=== PATIENT | female | born 1980 | race Caucasian/White ===

== ENCOUNTER 2024-05-31 19:48 | Inpatient (IN) | payer MEDICARE, SELFPAY ==
[2024-05-31 20:40] VITALS: BMI 36.0
--- NOTE | 2024-06-01 02:07 | PC.ADMIT ---
Caryl was admitted from [facility] on a 12b for schizoaffective D/O bipolar type. patient is noted to be disorganized, paranoid, suspicious and delusional upon admission. she allowed the skin check and vital signs with much encouragement. During the changeover she made multiple comments about how TW wanted to see her skin because TW wanted to clone or possess her No one possess me I am my own person . she made multiple references to wanting to be a ghost when asked to elaborate she stated I want to be a ghost. some ghosts are invisible and some are like a white mist I want to be an invisible ghost. patient did not openly endorse suicidal ideation. she denies all psych symptoms. she is noted to have multiple areas of discoloration on her lower extremities and multiple small scabs. the patient would not allow photographic documentation of her skin. she declined to answer any admission assessment questions and the admission was completed via crisis eval. patient oriented to the unit she was initially placed on Q15 minute safety checks which were changed to Q5 minute safety checks as the patient is sleeping in the anteroom r/t disorganization abd disruption of her roommates
[2024-06-01 07:00] VITALS: BMI 35.4
--- NOTE | 2024-06-01 08:50 | P.CONHOSP_ITS ---
History of Present Illness Data of Consult Service Date: 06/01/24 Primary Care Provider: Unknown Physician HPI Reason for consult: Admission H&P Pt is a 44-year-old female with a PMH significant for?schizoaffective with bipolar type who is admitted to psychiatry unit for delusions and disorganized thinking. Pt is currently homeless and has been living an attempt in a [facility] and has a long hx of noncompliance with home medications. Originally presented to [facility] with primarily psychiatric complaints. Medical consult for admission H&P. ?Pt seen in the ante-room where pt is completely covered head-to-toe in blankets which she declines to remove throughout interview. Pt initially reports that she wants help to ?turn into either air or a ghost?. Pt denies any acute medical co mplaints, though notes she has ?scabies and ?parasites? because they are retracted to her since she does not ?think they should exist?. Pt declines physical exam including examination of hands. Pt declines answering further questions or physical exam as she then only wants to discuss ?being allergic to antipsychotics?. Review of records from [facility] including CBC, CMP, and vitals are all unremarkable. Review of Systems Review of Systems: Pt denies any acute medical complaints. [facility] Social History Household Members: Other Household Members Other:: homeless Housing: Homeless Do you presently have visiting nurse or other home services: No Patient Tobacco Use Status: Current everyday Tobacco user Tobacco use type: Cigarette Cigarette Packs Per Day: 0.25 Cigarettes Per Day: 5.0 Smoked in Last 30 Days: Yes Patient Interested in Nicotine Replacement: Yes Patient Given Instructions on How to Stop Smoking: No (patient declined to participate) Second Hand Smoke Exposure: No Use of substances other than those prescribed or required for medical reasons: Refusing to respond Currently Displaying Signs/Symptoms of Drug Intoxication Withdrawal: No Advance Directives: No Advance Directives Information Provided: No Recently lost weight without trying: Yes How much weight loss: 2-13 pounds Eating poorly because of decreased appetite: No Nutrition screen score: 3 Nutrition Risks: No Nutritional Risk Patient : No : No Poor oral hygiene: No Meds Allergies Allergy/AdvReac Type Severity Reaction Status Date / Time No Known Allergies Allergy Verified 05/31/24 21:15 Active Medications: Current Medications Acetaminophen (Acetaminophen 325 Mg Tablet) 650 mg PO Q6H PRN PRN Reason: Headache/Pain, Scale 1-10 Al Hydroxide/Mg Hydroxide (Magnesium Hydrox/Alum Hydrox 30 Ml Oral.Susp) 30 ml PO Q6H PRN PRN Reason: Heartburn/Nausea Hydroxyzine HCl (Hydroxyzine Hcl 25 Mg Tablet) 25 mg PO Q6H PRN PRN Reason: mild anxiety Magnesium Hydroxide (Milk Of Magnesia 30 Ml Oral.Susp) 30 ml PO DAILY PRN PRN Reason: Constipation Nicotine (Nicotine 21 Mg Patch.Td24) 21 mg TRANSDERMA DAILY PRN PRN Reason: smoking cessation Nicotine Polacrilex (Nicotine Polacrilex 2 Mg Gum) 4 mg BUCCAL Q2H PRN PRN Reason: Nicotine Cravings Olanzapine (Olanzapine 5 Mg Tablet) 5 mg PO TID PRN PRN Reason: agitation Trazodone HCl (Trazodone Hcl 50 Mg Tablet) 50 mg PO BEDTIME MRX1 PRN PRN Reason: Insomnia Home Medications ?Medication ?Instructions ?Recorded ?Confirmed ?Last Taken ?Type No Known Home Meds 05/31/24 05/31/24 Unknown History Physical Exam Vital Signs and Narrative: Vital Signs: BMI result Body Mass Index 36.0 Pt refuses physical examination and remains covered head-to-toe in blankets during entire conversation. Assessment and Plan (1) Medical clearance for psychiatric admission: Status: Acute Plan Pt is a 44-year-old female with a PMH significant for?schizoaffective with bipolar type who is admitted to [facility] psychiatry unit for delusions and disorganized thinking. Pt is currently homeless and has been living an attempt in a [place] [facility] [place] and has a long hx of noncompliance with home medications. Originally [facility] with primarily psychiatric complaints. Medical consult for admission H&P. Mood disorder Pt has been noncompliant with home medications Appears actively delusional and psychotic at time of interviewq Plan as per psychiatry Pt otherwise has no acute medical complaints or known chronic medical conditions, and not on any known home medications. Will sign off for now. Please re-consult if any acute issue or need arises. Thank you for allowing us to participate in the care of this pt.
--- NOTE | 2024-06-01 10:11 | PC.NURSE ---
Pt refused morning vital signs + labs to be drawn. made aware.
--- NOTE | 2024-06-01 10:46 | HO.PSYADMNOT ---
HPI Date of Service: 06/01/24 Chief Complaint: Schizophrenia HPI Narrative: per [facility] records, pt sent into ED by community [employer] office for delusions and disorganized behaviors in a homeless person who appeared to be gravely disabled. she denied any safety concerns in ED. a schizoaffective disorder bipolar type diagnosis was reported, pt stated she had been off all medications for an extended period. per [employer] eval, pt was referred to crisis by friends of the homeless longterm. pt was eating there and a peer told her not to move her juice container and pt asked peer, are you going to murder me? a verbal altercation ensued. she reported depressed mood to crisis staff, but denied SI/HI/AVH. she was noted to have said, i want to turn into a ghost. pt's report of the interaction above is that her peer had red juice which looked like blood to her and somehow she was concerned the peer was going to murder her. she reported no meds in a long time, and that the meds she had been taking were for parasites. she added that after having stopped the medication, she observed said parasites exiting her mouth. per drawer hardware worker, appeared to respond to internal stimuli. on interview with MD, pt immediately requested to start risperidone and wellbutrin. agreed to start risperidone 1 BID and delay start of wellbutrin for now. pt demonstrated some lability and flight of ideas. she initially was receptive to MD, but appeared to sour on him by the end. a sample of her pressured speech: i'm picking up on your body language... it wouldn't be supportive... do you know any mechanical engineers? you can tell them, 'i got my ideas from cari, the collective consciousness.' unable to provide much in the way of history. Past Psychiatric History: hosps: numerous prior, MRE at [facility]. SA: denied to [employer] SIB: none reported HIB: h/o A&B on police outpt: none presently Medical Evaluation Reviewed: Hospitalist Chase Pending [facility] Family History: unknown Social History: homeless, sleeping in a tent at a [facility] in [place], [place], for the past 3 days. she attempted to stay at [facility] homeless but there were no available beds. family on [place]. SSI income. h/o assault and battery against police. Substance History: tobacco - 0.25 ppd otherwise no drug use reported Trauma History: none reported Diagnostics Vital Signs (24Hr): BMI result Body Mass Index 36.0 Meds/Allergies Meds Home Medications ?Medication ?Instructions ?Recorded ?Confirmed ?Type No Known Home Meds 05/31/24 05/31/24 History Allergies Allergies Allergy/AdvReac Type Severity Reaction Status Date / Time No Known Allergies Allergy Verified 05/31/24 21:15 Mental Status Exam Mental Status Exam Narrative: dressed in hospital marlene, unkempt. no PMA/PMR. cooperative to her ability. speech pressured. flight of ideas. affect constricted, normo-intense, mod-labile. mood inventive. denies SI/SIBI/HI. declines to answer about AVH. Assessment & Plan Assessment & Plan (1) Schizoaffective disorder, bipolar type: Status: Acute Code(s): F25.0 - Schizoaffective disorder, bipolar type Plan start risperidone 1 BID. hold wellbutrin for now. T/C mood stabilizer moving forward. Patient educated on: medication risk/benefits Reason for continued inpatient stay Substantial Risk for: harm to others and inability to function Statement Statement: I have reviewed the history and physical and performed a pertinent examination on my patient. No changes have occurred unless specified. If the History and Physical was not performed prior to admission, the Hospitalist's service will be consulted for completing the admission physical. Time Spent With Patient Time: Total time managing care of this patient today __55__ minutes.
[2024-06-01] MEDS: risperiDONE 1 MG TABLET PO ×2 (15:50→20:30)
[2024-06-01 20:37] VITALS: RESP 18
--- NOTE | 2024-06-02 07:52 | PC.NURSE ---
Pt refused VS to be obtained this morning.
--- NOTE | 2024-06-02 08:23 | PC.NURSE ---
Caryl refused labs to be drawn this morning despite staff encouragement
[2024-06-02] MEDS: risperiDONE 1 MG TABLET PO (09:24)
--- NOTE | 2024-06-02 13:03 | HO.PSYCHPN ---
Subjective Subjective Date of Service: 06/02/24 Reason For Visit: Schizophrenia Interim History: lying in bed in darkened room. declines to come for interview. denies any needs from MD. per staff, flight of ideas. paranoid. are you part of the outer dimension? Mental Status Exam Mental Status Exam Narrative: dressed in hospital marlene, unkempt. no PMA/PMR. not cooperative. sleeping, minimally rousable. very briefly linear in response to questions. no SI/HI/AVH expressed. Diagnostics Vital Signs (24Hr): Vital Signs - 24 hr 06/01/24 20:37 Respiratory Rate 18 BMI result Body Mass Index 35.4 Medications Medications Current Medications Acetaminophen (Acetaminophen 325 Mg Tablet) 650 mg PO Q6H PRN PRN Reason: Headache/Pain, Scale 1-10 Al Hydroxide/Mg Hydroxide (Magnesium Hydrox/Alum Hydrox 30 Ml Oral.Susp) 30 ml PO Q6H PRN PRN Reason: Heartburn/Nausea Hydroxyzine HCl (Hydroxyzine Hcl 25 Mg Tablet) 25 mg PO Q6H PRN PRN Reason: mild anxiety Magnesium Hydroxide (Milk Of Magnesia 30 Ml Oral.Susp) 30 ml PO DAILY PRN PRN Reason: Constipation Nicotine (Nicotine 21 Mg Patch.Td24) 21 mg TRANSDERMA DAILY PRN PRN Reason: smoking cessation Nicotine Polacrilex (Nicotine Polacrilex 2 Mg Gum) 4 mg BUCCAL Q2H PRN PRN Reason: Nicotine Cravings Olanzapine (Olanzapine 5 Mg Tablet) 5 mg PO TID PRN PRN Reason: agitation Trazodone HCl (Trazodone Hcl 50 Mg Tablet) 50 mg PO BEDTIME MRX1 PRN PRN Reason: Insomnia Allergies Allergies Allergy/AdvReac Type Severity Reaction Status Date / Time No Known Allergies Allergy Verified 05/31/24 21:15 Assessment & Plan Assessment & Plan (1) Schizoaffective disorder, bipolar type: Status: Acute Code(s): F25.0 - Schizoaffective disorder, bipolar type Plan 06/01: start risperidone 1 BID. hold wellbutrin for now. T/C mood stabilizer moving forward. 06/02: remains highly symptomatic. increase risperidone from 1 BID to 1/2. Reason for continued inpatient stay Substantial Risk for: inability to function Time Spent With Patient Time: Total time managing care of this patient today ____ minutes.
[2024-06-02 20:00] VITALS: RESP 16
[2024-06-02] MEDS: risperiDONE 2 MG TABLET PO (21:27)
[2024-06-03] MEDS: risperiDONE 1 MG TABLET PO (09:46)
--- NOTE | 2024-06-03 10:44 | HO.PSYCHPN ---
Subjective Subjective Date of Service: 06/03/24 Reason For Visit: Schizophrenia Subjective Notes: Section 12B Interim History: Pt slept 5hrs. She was in and out of her room, calling someone on the phone, yelling. She presents as irritable. When seen in the room, pt reports there are too many coincidences, shows this typewriter tester ray of light that can still pass through close blinds in her room. She believes this is bizarre, where is this coming from? this typewriter tester attempted to explain sunlight coming through the window despite shades being close, but she insists these are signs of spiritual guides. She reports she is working on many ideas she has. 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 she denies SI/HI. She is guarded and irritable with this typewriter tester stating you're not helping, our energy do not match but any attempts of this typewriter tester to leave the room, pt kept talking and asking why I was leaving. She is taking risperidone. Review of Systems Review of Systems Pt denies any acute medical complaints. Mental Status Exam Mental Status Exam Narrative: dressed in hospital marlene, unkempt. no PMA/PMR. Psychomotor: intermittent agitation Speech: hyperverbal, loud at times, spontaneous TP: flight of ideas, at times disorganized TC: connecting with spiritual guides, other spiritual themes Mood: good Affect: labile SI: denies HI: none VH/AH: appears internally preoccupied, self dialoguing Delusions: grandiose and spiritism theme delusions Insight/judgment: impaired x 2. Diagnostics Vital Signs (24Hr): Vital Signs - 24 hr 06/02/24 20:00 Respiratory Rate 16 BMI result Body Mass Index 35.4 Medications Medications Current Medications Acetaminophen (Acetaminophen 325 Mg Tablet) 650 mg PO Q6H PRN PRN Reason: Headache/Pain, Scale 1-10 Al Hydroxide/Mg Hydroxide (Magnesium Hydrox/Alum Hydrox 30 Ml Oral.Susp) 30 ml PO Q6H PRN PRN Reason: Heartburn/Nausea Hydroxyzine HCl (Hydroxyzine Hcl 25 Mg Tablet) 25 mg PO Q6H PRN PRN Reason: mild anxiety Magnesium Hydroxide (Milk Of Magnesia 30 Ml Oral.Susp) 30 ml PO DAILY PRN PRN Reason: Constipation Nicotine (Nicotine 21 Mg Patch.Td24) 21 mg TRANSDERMA DAILY PRN PRN Reason: smoking cessation Nicotine Polacrilex (Nicotine Polacrilex 2 Mg Gum) 4 mg BUCCAL Q2H PRN PRN Reason: Nicotine Cravings Olanzapine (Olanzapine 5 Mg Tablet) 5 mg PO TID PRN PRN Reason: agitation Risperidone (Risperidone 1 Mg Tablet) 1 mg PO DAILY [facility] Last Admin: 06/03/24 09:46 Dose: 1 mg Risperidone (Risperidone 2 Mg Tablet) 2 mg PO BEDTIME SHILOH Last Admin: 06/02/24 21:27 Dose: 2 mg Trazodone HCl (Trazodone Hcl 50 Mg Tablet) 50 mg PO BEDTIME MRX1 PRN PRN Reason: Insomnia Allergies Allergies Allergy/AdvReac Type Severity Reaction Status Date / Time No Known Allergies Allergy Verified 05/31/24 21:15 Assessment & Plan Assessment & Plan (1) Schizoaffective disorder, bipolar type: Status: Acute Code(s): F25.0 - Schizoaffective disorder, bipolar type Plan 06/01: start risperidone 1 BID. hold wellbutrin for now. T/C mood stabilizer moving forward. 06/02: remains highly symptomatic. increase risperidone from 1 BID to 1/2. 06/03 grandiose, spiritism delusions. taking risperidone, decline mood stabilizer but will continue to educate pt as need for this medication Reason for continued inpatient stay Substantial Risk for: inability to function Time Spent With Patient Time: Total time managing care of this patient today ____ minutes.
[2024-06-03 20:00] VITALS: RESP 16
[2024-06-03] MEDS: risperiDONE 2 MG TABLET PO (21:13)
[2024-06-04] MEDS: risperiDONE 1 MG TABLET PO (09:40)
[2024-06-04] MEDS: risperiDONE 2 MG TABLET PO (20:57)
--- NOTE | 2024-06-04 22:30 | HO.PSYCHPN ---
Subjective Subjective Date of Service: 06/04/24 Reason For Visit: Schizophrenia Subjective Notes: 3 Day Interim History: Pt slept most of the night. She is taking risperidone. She continues to present with latter day/spiritual and grandiose delusions. She is irritable, and labile. She is self dialoguing in bathroom. She is hyperverbal and is difficult to follow no coherent theme. She jumps from words that she over analyzed to connection she randomly makes, but do not connect. when asked to explain, get irritable. We discussed again starting mood stabilizer like lithium. She states can't you see the connection? She states mood stabilizer... MS, lithium causes MS (multiple sclerosis), I don't want that medication attempts to educate patient did not seem productive nor effective. her capacity to make medical decisions at this time is impaired. Review of Systems Review of Systems Pt denies any acute medical complaints. Mental Status Exam Mental Status Exam Narrative: dressed in hospital marlene, unkempt. no PMA/PMR. Psychomotor: intermittent agitation Speech: hyperverbal, loud at times, spontaneous TP: flight of ideas, at times disorganized TC: connecting with spiritual guides, other spiritual themes Mood: good Affect: labile SI: denies HI: none VH/AH: appears internally preoccupied, self dialoguing Delusions: grandiose and latter day theme delusions Insight/judgment: impaired x 2. Diagnostics Vital Signs (24Hr): BMI result Body Mass Index 35.4 Medications Medications Current Medications Acetaminophen (Acetaminophen 325 Mg Tablet) 650 mg PO Q6H PRN PRN Reason: Headache/Pain, Scale 1-10 Al Hydroxide/Mg Hydroxide (Magnesium Hydrox/Alum Hydrox 30 Ml Oral.Susp) 30 ml PO Q6H PRN PRN Reason: Heartburn/Nausea Hydroxyzine HCl (Hydroxyzine Hcl 25 Mg Tablet) 25 mg PO Q6H PRN PRN Reason: mild anxiety Magnesium Hydroxide (Milk Of Magnesia 30 Ml Oral.Susp) 30 ml PO DAILY PRN PRN Reason: Constipation Nicotine (Nicotine 21 Mg Patch.Td24) 21 mg TRANSDERMA DAILY PRN PRN Reason: smoking cessation Nicotine Polacrilex (Nicotine Polacrilex 2 Mg Gum) 4 mg BUCCAL Q2H PRN PRN Reason: Nicotine Cravings Olanzapine (Olanzapine 5 Mg Tablet) 5 mg PO TID PRN PRN Reason: agitation Risperidone (Risperidone 1 Mg Tablet) 1 mg PO DAILY [facility] Last Admin: 06/04/24 09:40 Dose: 1 mg Risperidone (Risperidone 2 Mg Tablet) 2 mg PO BEDTIME SHILOH Last Admin: 06/04/24 20:57 Dose: 2 mg Trazodone HCl (Trazodone Hcl 50 Mg Tablet) 50 mg PO BEDTIME MRX1 PRN PRN Reason: Insomnia Allergies Allergies Allergy/AdvReac Type Severity Reaction Status Date / Time No Known Allergies Allergy Verified 05/31/24 21:15 Assessment & Plan Assessment & Plan (1) Schizoaffective disorder, bipolar type: Status: Acute Code(s): F25.0 - Schizoaffective disorder, bipolar type Plan 06/01: start risperidone 1 BID. hold wellbutrin for now. T/C mood stabilizer moving forward. 06/02: remains highly symptomatic. increase risperidone from 1 BID to 1/2. 06/03 latter day/grandiose delusions, taking risperidone, declines mood stabilizer 06/04 declines mood stabilizer, will continue to educate pt as she gets bit calmer on risperidone Reason for continued inpatient stay Substantial Risk for: inability to function Time Spent With Patient Time: Total time managing care of this patient today ____ minutes.
[2024-06-05] MEDS: risperiDONE 1 MG TABLET PO (09:50)
[2024-06-05 19:55] VITALS: RESP 16
--- NOTE | 2024-06-05 20:35 | HO.PSYCHPN ---
Subjective Subjective Date of Service: 06/05/24 Reason For Visit: Schizophrenia Subjective Notes: 3 Day Interim History: Pt slept most of the night. She is taking risperidone. She continues to present with congregation/spiritual and grandiose delusions. She is irritable, and labile. She is self dialoguing in bathroom. She is hyperverbal and is difficult to follow no coherent theme. She jumps from words that she over analyzed to connection she randomly makes, but do not connect. when asked to explain, get irritable. We discussed again starting mood stabilizer like lithium. She states can't you see the connection? She states mood stabilizer... MS, lithium causes MS (multiple sclerosis), I don't want that medication attempts to educate patient did not seem productive nor effective. her capacity to make medical decisions at this time is impaired. We discuss ordering lithium and she can decide whether to take it or not. Review of Systems Review of Systems Pt denies any acute medical complaints. Mental Status Exam Mental Status Exam Narrative: dressed in hospital marlene, unkempt. no PMA/PMR. Psychomotor: intermittent agitation Speech: hyperverbal, loud at times, spontaneous TP: flight of ideas, at times disorganized TC: connecting with spiritual guides, other spiritual themes Mood: good Affect: labile SI: denies HI: none VH/AH: appears internally preoccupied, self dialoguing Delusions: grandiose and congregation theme delusions Insight/judgment: impaired x 2. Diagnostics Vital Signs (24Hr): BMI result Body Mass Index 35.4 Medications Medications Current Medications Acetaminophen (Acetaminophen 325 Mg Tablet) 650 mg PO Q6H PRN PRN Reason: Headache/Pain, Scale 1-10 Al Hydroxide/Mg Hydroxide (Magnesium Hydrox/Alum Hydrox 30 Ml Oral.Susp) 30 ml PO Q6H PRN PRN Reason: Heartburn/Nausea Hydroxyzine HCl (Hydroxyzine Hcl 25 Mg Tablet) 25 mg PO Q6H PRN PRN Reason: mild anxiety [place] Carbonate ([place] Carbonate 300 Mg Capsule) 600 mg PO BID SHILOH Magnesium Hydroxide (Milk Of Magnesia 30 Ml Oral.Susp) 30 ml PO DAILY PRN PRN Reason: Constipation Nicotine (Nicotine 21 Mg Patch.Td24) 21 mg TRANSDERMA DAILY PRN PRN Reason: smoking cessation Nicotine Polacrilex (Nicotine Polacrilex 2 Mg Gum) 4 mg BUCCAL Q2H PRN PRN Reason: Nicotine Cravings Olanzapine (Olanzapine 5 Mg Tablet) 5 mg PO TID PRN PRN Reason: agitation Risperidone (Risperidone 1 Mg Tablet) 1 mg PO DAILY [facility] Last Admin: 06/05/24 09:50 Dose: 1 mg Risperidone (Risperidone 2 Mg Tablet) 2 mg PO BEDTIME SHILOH Last Admin: 06/04/24 20:57 Dose: 2 mg Trazodone HCl (Trazodone Hcl 50 Mg Tablet) 50 mg PO BEDTIME MRX1 PRN PRN Reason: Insomnia Allergies Allergies Allergy/AdvReac Type Severity Reaction Status Date / Time No Known Allergies Allergy Verified 05/31/24 21:15 Assessment & Plan Assessment & Plan (1) Schizoaffective disorder, bipolar type: Status: Acute Code(s): F25.0 - Schizoaffective disorder, bipolar type Plan 06/01: start risperidone 1 BID. hold wellbutrin for now. T/C mood stabilizer moving forward. 06/02: remains highly symptomatic. increase risperidone from 1 BID to 1/2. 06/03 congregation/grandiose delusions, taking risperidone, declines mood stabilizer 06/04 declines mood stabilizer, will continue to educate pt as she gets bit calmer on risperidone 06/05 start lithium 600mg po BID, continue risperidone. Reason for continued inpatient stay Substantial Risk for: inability to function Time Spent With Patient Time: Total time managing care of this patient today ____ minutes.
[2024-06-05] MEDS: risperiDONE 2 MG TABLET PO (22:08)
[2024-06-05] MEDS: Lithium Carbonate 300 MG CAPSULE 600 MG PO (22:08)
[2024-06-06] MEDS: Lithium Carbonate 300 MG CAPSULE 600 MG PO (09:43)
[2024-06-06] MEDS: risperiDONE 1 MG TABLET PO (09:43)
--- NOTE | 2024-06-06 11:16 | P.PNPSI_ITS ---
Subjective Subjective Date of Service: 06/06/24 Reason For Visit: Schizophrenia Subjective Notes: Cates Warning (gave on 06/06) Interim History: Met with patient; discussed with team; reviewed chart Patient psychotic and disorganized in both speech and behavior. Patient with clanging symptoms, taking a word and then rhyming it nonsensically. Patient able to have briefly organized moments and discuss medications Risperdal and lithium and says she will continue taking them; also agreed to sign into the unit. Patient then descends into some nonsensical statements and says dap and tap all moving into becoming non PhD color grafts.. Which she repeats a few t imes to make sure video game script writer gets it correctly. She denies any SI; denies AVH. Says she is struggling because everything that she loves hates her and everything that she hates, loves her. She does endorse depression and says lots of it, repeating big lots.. Mental Status Exam Mental Status Exam Narrative: dressed in hospital [place], unkempt. Some combination of mild psychomotor retardation and agitation Speech: hyperverbal though not pressured; spontaneous TP: flight of ideas, however can also have moments organized thought TC: Seemingly random, esoteric bizarre thoughts Mood: good Affect: Smiling SI: denies HI: none VH/AH: Denies however appears internally preoccupied, and clearly self dialoguing Delusions: grandiose and nondenominational theme delusions Insight/judgment: impaired Diagnostics Vital Signs (24Hr): Vital Signs - 24 hr 06/05/24 19:55 Respiratory Rate 16 BMI result Body Mass Index 35.4 Medications Medications Current Medications Acetaminophen (Acetaminophen 325 Mg Tablet) 650 mg PO Q6H PRN PRN Reason: Headache/Pain, Scale 1-10 Al Hydroxide/Mg Hydroxide (Magnesium Hydrox/Alum Hydrox 30 Ml Oral.Susp) 30 ml PO Q6H PRN PRN Reason: Heartburn/Nausea Hydroxyzine HCl (Hydroxyzine Hcl 25 Mg Tablet) 25 mg PO Q6H PRN PRN Reason: mild anxiety [place] Carbonate ([place] Carbonate 300 Mg Capsule) 600 mg PO BID [facility] Last Admin: 06/06/24 09:43 Dose: 600 mg Magnesium Hydroxide (Milk Of Magnesia 30 Ml Oral.Susp) 30 ml PO DAILY PRN PRN Reason: Constipation Nicotine (Nicotine 21 Mg Patch.Td24) 21 mg TRANSDERMA DAILY PRN PRN Reason: smoking cessation Nicotine Polacrilex (Nicotine Polacrilex 2 Mg Gum) 4 mg BUCCAL Q2H PRN PRN Reason: Nicotine Cravings Olanzapine (Olanzapine 5 Mg Tablet) 5 mg PO TID PRN PRN Reason: agitation Risperidone (Risperidone 1 Mg Tablet) 1 mg PO DAILY [facility] Last Admin: 06/06/24 09:43 Dose: 1 mg Risperidone (Risperidone 2 Mg Tablet) 2 mg PO BEDTIME [facility] Last Admin: 06/05/24 22:08 Dose: 2 mg Trazodone HCl (Trazodone Hcl 50 Mg Tablet) 50 mg PO BEDTIME MRX1 PRN PRN Reason: Insomnia Allergies Allergies Allergy/AdvReac Type Severity Reaction Status Date / Time No Known Allergies Allergy Verified 05/31/24 21:15 Assessment & Plan Assessment & Plan (1) Schizoaffective disorder, bipolar type: Status: Acute Code(s): F25.0 - Schizoaffective disorder, bipolar type Plan Hospital course: 06/01: start risperidone 1 BID. hold wellbutrin for now. T/C mood stabilizer moving forward. 06/02: remains highly symptomatic. increase risperidone from 1 BID to 1/2. 06/03 nondenominational/grandiose delusions, taking risperidone, declines mood stabilizer 06/04 declines mood stabilizer, will continue to educate pt as she gets bit calmer on risperidone 06/05 start lithium 600mg po BID, continue risperidone. 06/06 Patient psychotic and disorganized in both speech and behavior. Patient with clanging symptoms, taking a word and then rhyming it nonsensically. Patient able to have briefly organized moments and discuss medications Risperdal and lithium and says she will continue taking them; also agreed to sign into the unit. Patient then descends into some nonsensical statements and says dap and tap all moving into becoming non PhD color grafts.. Which she repeats a few times to make sure video game script writer gets it correctly. She denies any SI; denies AVH. Says she is struggling because everything that she loves hates her and everything that she hates, loves her. She does endorse depression and says lots of it, repeating big lots.. -will continue with current regimen since it address his both depression and psychosis PLAN: CV Risperidone 1 mg daily and 2 mg q.h.s. [place] 600 mg b.i.d. Will try to gather collateral Patient educated on: diagnosis and medication risk/benefits Informed Consent: understands, does not understand and further education needed Reason for continued inpatient stay Substantial Risk for: inability to function Time Spent With Patient Time: Total time managing care of this patient today ____ minutes.
[2024-06-06 20:02] VITALS: RESP 16
[2024-06-07 08:00] VITALS: RESP 17
--- NOTE | 2024-06-07 08:53 | P.PNPSI_ITS ---
Subjective Subjective Date of Service: 06/07/24 Reason For Visit: Schizophrenia Interim History: Met with patient; discussed with team Patient refused Risperdal lithium last night; nursing staff report likely because she was asleep. Patient a little more organized today or at least able to be a little more organized for little longer; she continues to say bizarre things, rhyming Says her mood is okay talked about wanting to fix her credit; talked about whether not to get involved with [facility]; says it is hard to trust since everyone is playing games; starts to ask if medical technical writer was playing games; starts to ask medical technical writer personal questions but as medical technical writer declines to answer patient becomes reticent Mental Status Exam Mental Status Exam Narrative: dressed in hospital [place], unkempt. Some combination of mild psychomotor retardation and agitation Speech: hyperverbal though not pressured; spontaneous TP: flight of ideas, however can also have moments organized thought TC: Seemingly random, esoteric bizarre thoughts Mood: good Affect: Smiling SI: denies HI: none VH/AH: Denies however appears internally preoccupied, and clearly self dialoguing Delusions: grandiose and jewish theme delusions Insight/judgment: impaired Diagnostics Vital Signs (24Hr): Vital Signs - 24 hr 06/06/24 20:02 Respiratory Rate 16 BMI result Body Mass Index 35.4 Medications Medications Current Medications Acetaminophen (Acetaminophen 325 Mg Tablet) 650 mg PO Q6H PRN PRN Reason: Headache/Pain, Scale 1-10 Al Hydroxide/Mg Hydroxide (Magnesium Hydrox/Alum Hydrox 30 Ml Oral.Susp) 30 ml PO Q6H PRN PRN Reason: Heartburn/Nausea Hydroxyzine HCl (Hydroxyzine Hcl 25 Mg Tablet) 25 mg PO Q6H PRN PRN Reason: mild anxiety [place] Carbonate ([place] Carbonate 300 Mg Capsule) 600 mg PO BID [facility] Last Admin: 06/06/24 22:29 Dose: Not Given Magnesium Hydroxide (Milk Of Magnesia 30 Ml Oral.Susp) 30 ml PO DAILY PRN PRN Reason: Constipation Nicotine (Nicotine 21 Mg Patch.Td24) 21 mg TRANSDERMA DAILY PRN PRN Reason: smoking cessation Nicotine Polacrilex (Nicotine Polacrilex 2 Mg Gum) 4 mg BUCCAL Q2H PRN PRN Reason: Nicotine Cravings Olanzapine (Olanzapine 5 Mg Tablet) 5 mg PO TID PRN PRN Reason: agitation Risperidone (Risperidone 1 Mg Tablet) 1 mg PO DAILY [facility] Last Admin: 06/06/24 09:43 Dose: 1 mg Risperidone (Risperidone 2 Mg Tablet) 2 mg PO BEDTIME [facility] Last Admin: 06/06/24 22:29 Dose: Not Given Trazodone HCl (Trazodone Hcl 50 Mg Tablet) 50 mg PO BEDTIME MRX1 PRN PRN Reason: Insomnia Allergies Allergies Allergy/AdvReac Type Severity Reaction Status Date / Time No Known Allergies Allergy Verified 05/31/24 21:15 Assessment & Plan Assessment & Plan (1) Schizoaffective disorder, bipolar type: Status: Acute Code(s): F25.0 - Schizoaffective disorder, bipolar type (2) Homeless: Status: Acute Code(s): Z59.00 - Homelessness unspecified Plan Hospital course: 06/01: start risperidone 1 BID. hold wellbutrin for now. T/C mood stabilizer moving forward. 06/02: remains highly symptomatic. increase risperidone from 1 BID to 1/2. 06/03 jewish/grandiose delusions, taking risperidone, declines mood stabilizer 06/04 declines mood stabilizer, will continue to educate pt as she gets bit calmer on risperidone 06/05 start lithium 600mg po BID, continue risperidone. 06/06 Patient psychotic and disorganized in both speech and behavior. Patient with clanging symptoms, taking a word and then rhyming it nonsensically. Patient able to have briefly organized moments and discuss medications Risperdal and lithium and says she will continue taking them; also agreed to sign into the unit. Patient then descends into some nonsensical statements and says dap and tap all moving into becoming non PhD color grafts.. Which she repeats a few times to make sure medical technical writer gets it correctly. She denies any SI; denies AVH. Says she is struggling because everything that she loves hates her and everything that she hates, loves her. She does endorse depression and says lots of it, repeating big lots.. -will continue with current regimen since it address his both depression and psychosis; however refusing vitals and not sure she will allow labs making lithium possibly difficult 06/07 Patient refused Risperdal lithium last night; nursing staff report likely because she was asleep. Patient a little more organized today or at least able to be a little more organized for little longer; she continues to say bizarre things, rhyming Says her mood is okay talked about wanting to fix her credit; talked about whether not to get involved with [facility]; says it is hard to trust since everyone is playing games; starts to ask if medical technical writer was playing games; starts to ask medical technical writer personal questions but as medical technical writer declines to answer patient becomes reticent -will switch lithium to long-acting and 1 time dosing and a little earlier since patient misses dose when scheduled later on; will also lower dose since 1200 mg to avoid risk of overdosing -will move up Risperdal to dinnertime as well; however will leave at current dosing since seems a little better PLAN: CV Risperidone 1 mg daily and 2 mg at 17:00 Change to lithium ER 900 mg at 17:00 (lowered from 1200 mg since not clear history/toleration) Will try to gather collateral Patient educated on: diagnosis and medication risk/benefits Informed Consent: understands, does not understand and further education needed Reason for continued inpatient stay Substantial Risk for: inability to function Time Spent With Patient Time: Total time managing care of this patient today ____ minutes.
[2024-06-07] MEDS: risperiDONE 1 MG TABLET PO (09:08)
[2024-06-07] MEDS: Lithium Carbonate 300 MG CAPSULE 600 MG PO (09:08)
--- NOTE | 2024-06-07 12:01 | PC.NURSE ---
Patient continues to refuse vitals to be taken in the morning. Re-attempted this afternoon but patient declined. Provider notified via tiger text.
[2024-06-07] MEDS: risperiDONE 2 MG TABLET PO (17:44)
[2024-06-07] MEDS: Lithium Carbonate ER 450 MG TABLET.ER 900 MG PO (17:44)
[2024-06-07 20:00] VITALS: RESP 16
--- NOTE | 2024-06-07 22:56 | PC.NURSE ---
Caryl requested to use her cell phone to get a number. This advertising writer observed when she first came in she declined to get the numbers out. This advertising writer explained to patient that she would have this opportunity to get the number she wanted but that she would no longer have access to her cellphone. Patient agreed. Patient was able to get the number she needed. [facility]
[2024-06-08 08:00] VITALS: RESP 16
--- NOTE | 2024-06-08 10:33 | P.PNPSI_ITS ---
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 That said, seems more organized and no longer clanging... Mental Status Exam Mental Status Exam Narrative: dressed in hospital marlene, unkempt. Some combination of mild psychomotor retardation and agitation Speech: hyperverbal though not pressured; spontaneous TP: still flight of ideas but less and can also have moments organized thought TC: Seemingly random, esoteric bizarre thoughts, delusions Mood: good Affect: Smiling SI: denies HI: none VH/AH: Denies however appears internally preoccupied, and clearly self dialoguing Delusions: grandiose and islam theme delusions Insight/judgment: impaired Diagnostics Vital Signs (24Hr): Vital Signs - 24 hr 06/07/24 20:00 Respiratory Rate 16 BMI result Body Mass Index 35.4 Medications Medications Current Medications Acetaminophen (Acetaminophen 325 Mg Tablet) 650 mg PO Q6H PRN PRN Reason: Headache/Pain, Scale 1-10 Al Hydroxide/Mg Hydroxide (Magnesium Hydrox/Alum Hydrox 30 Ml Oral.Susp) 30 ml PO Q6H PRN PRN Reason: Heartburn/Nausea Hydroxyzine HCl (Hydroxyzine Hcl 25 Mg Tablet) 25 mg PO Q6H PRN PRN Reason: mild anxiety [place] Carbonate ([place] Carbonate Er 450 Mg Tablet.Er) 900 mg PO DAILY@1700 [facility] Last Admin: 06/07/24 17:44 Dose: 900 mg Magnesium Hydroxide (Milk Of Magnesia 30 Ml Oral.Susp) 30 ml PO DAILY PRN PRN Reason: Constipation Nicotine (Nicotine 21 Mg Patch.Td24) 21 mg TRANSDERMA DAILY PRN PRN Reason: smoking cessation Nicotine Polacrilex (Nicotine Polacrilex 2 Mg Gum) 4 mg BUCCAL Q2H PRN PRN Reason: Nicotine Cravings Olanzapine (Olanzapine 5 Mg Tablet) 5 mg PO TID PRN PRN Reason: agitation Risperidone (Risperidone 1 Mg Tablet) 1 mg PO DAILY [facility] Last Admin: 06/07/24 09:08 Dose: 1 mg Risperidone (Risperidone 2 Mg Tablet) 2 mg PO DAILY@1700 [facility] Last Admin: 06/07/24 17:44 Dose: 2 mg Trazodone HCl (Trazodone Hcl 50 Mg Tablet) 50 mg PO BEDTIME MRX1 PRN PRN Reason: Insomnia Allergies Allergies Allergy/AdvReac Type Severity Reaction Status Date / Time No Known Allergies Allergy Verified 05/31/24 21:15 Assessment & Plan Assessment & Plan (1) Schizoaffective disorder, bipolar type: Status: Acute Code(s): F25.0 - Schizoaffective disorder, bipolar type (2) Homeless: Status: Acute Code(s): Z59.00 - Homelessness unspecified Plan Hospital course: 06/01: start risperidone 1 BID. hold wellbutrin for now. T/C mood stabilizer moving forward. 06/02: remains highly symptomatic. increase risperidone from 1 BID to /. 06/03 islam/grandiose delusions, taking risperidone, declines mood stabilizer 06/04 declines mood stabilizer, will continue to educate pt as she gets bit calmer on risperidone 06/05 start lithium 600mg po BID, continue risperidone. 06/06 Patient psychotic and disorganized in both speech and behavior. Patient with clanging symptoms, taking a word and then rhyming it nonsensically. Patient able to have briefly organized moments and discuss medications Risperdal and lithium and says she will continue taking them; also agreed to sign into the unit. Patient then descends into some nonsensical statements and says dap and tap all moving into becoming non PhD color grafts.. Which she repeats a few times to make sure rfp writer gets it correctly. She denies any SI; denies AVH. Says she is struggling because everything that she loves hates her and everything that she hates, loves her. She does endorse depression and says lots of it, repeating big lots.. -will continue with current regimen since it address his both depression and psychosis; however refusing vitals and not sure she will allow labs making lithium possibly difficult 06/07 Patient refused Risperdal lithium last night; nursing staff report likely because she was asleep. Patient a little more organized today or at least able to be a little more organized for little longer; she continues to say bizarre things, rhyming Says her mood is okay talked about wanting to fix her credit; talked about whether not to get involved with [facility]; says it is hard to trust since everyone is playing games; starts to ask if rfp writer was playing games; starts to ask rfp writer personal questions but as rfp writer declines to answer patient becomes reticent -will switch lithium to long-acting and 1 time dosing and a little earlier since patient misses dose when scheduled later on; will also lower dose since 1200 mg to avoid risk of overdosing -will move up Risperdal to dinnertime as well; however will leave at current dosing since seems a little better 06/08 still disorganzed and delusoinal but also improved some; no SI/HI PLAN: CV Risperidone 1 mg daily and 2 mg at 17:00 Change to lithium ER 900 mg at 17:00 (lowered from 1200 mg since not clear history/toleration) Will try to gather collateral Patient educated on: diagnosis and medication risk/benefits Informed Consent: understands, does not understand and further education needed Reason for continued inpatient stay Substantial Risk for: stable for discharge and rapid decompensation Time Spent With Patient Time: Total time managing care of this patient today ____ minutes.
[2024-06-08 20:00] VITALS: BP 119/63; PULSE 78; RESP 16; TEMP 37.2; O2SAT 98
--- NOTE | 2024-06-09 09:01 | HO.PSYCHPN ---
Subjective Subjective Date of Service: 06/09/24 Reason For Visit: Schizophrenia Interim History: met with pt; discussed with team refused meds last night, this morning. She says she did so since it was a no day but will take from now on. Conversation w/ delusional thoughts; attempted reality testing which was met w/out insight She said she does not think she has any mental/psychiatric illness and does not need medications. Regarding [facility], she said i just milk hospitals for what there worth..i need a place to stay since i'm homeless... Sw talked w/ brother who confirms long hx of psychotic illness, itinerant lifestyle, not taking meds but managing on her own; says no hx of harm self or othersand long hx going to hospitals [place] Mental Status Exam Mental Status Exam Narrative: dressed in hospital [place], unkempt. Some combination of mild psychomotor retardation and agitation Speech: hyperverbal though not pressured; spontaneous TP: delusions; some flight of ideas but less and can also have moments organized thought TC: Seemingly random, esoteric bizarre thoughts, delusions Mood: good Affect: Smiling SI: denies HI: none VH/AH: Denies however appears internally preoccupied, and clearly self dialoguing Delusions: grandiose and scientology theme delusions Insight/judgment: impaired Diagnostics Vital Signs (24Hr): Vital Signs - 24 hr 06/08/24 20:00 Temperature 98.9 F Pulse Rate 78 Respiratory Rate 16 Blood Pressure 119/63 Pulse Oximetry 98 Oxygen Delivery Method Room Air BMI result Body Mass Index 35.4 Medications Medications Current Medications Acetaminophen (Acetaminophen 325 Mg Tablet) 650 mg PO Q6H PRN PRN Reason: Headache/Pain, Scale 1-10 Al Hydroxide/Mg Hydroxide (Magnesium Hydrox/Alum Hydrox 30 Ml Oral.Susp) 30 ml PO Q6H PRN PRN Reason: Heartburn/Nausea Hydroxyzine HCl (Hydroxyzine Hcl 25 Mg Tablet) 25 mg PO Q6H PRN PRN Reason: mild anxiety [place] Carbonate ([place] Carbonate Er 450 Mg Tablet.Er) 900 mg PO DAILY@1700 [facility] Last Admin: 06/08/24 18:02 Dose: Not Given Magnesium Hydroxide (Milk Of Magnesia 30 Ml Oral.Susp) 30 ml PO DAILY PRN PRN Reason: Constipation Nicotine (Nicotine 21 Mg Patch.Td24) 21 mg TRANSDERMA DAILY PRN PRN Reason: smoking cessation Nicotine Polacrilex (Nicotine Polacrilex 2 Mg Gum) 4 mg BUCCAL Q2H PRN PRN Reason: Nicotine Cravings Olanzapine (Olanzapine 5 Mg Tablet) 5 mg PO TID PRN PRN Reason: agitation Risperidone (Risperidone 1 Mg Tablet) 1 mg PO DAILY [facility] Last Admin: 06/08/24 10:41 Dose: Not Given Risperidone (Risperidone 2 Mg Tablet) 2 mg PO DAILY@1700 [facility] Last Admin: 06/08/24 18:02 Dose: Not Given Trazodone HCl (Trazodone Hcl 50 Mg Tablet) 50 mg PO BEDTIME MRX1 PRN PRN Reason: Insomnia Allergies Allergies Allergy/AdvReac Type Severity Reaction Status Date / Time No Known Allergies Allergy Verified 05/31/24 21:15 Assessment & Plan Assessment & Plan (1) Schizoaffective disorder, bipolar type: Status: Acute Code(s): F25.0 - Schizoaffective disorder, bipolar type (2) Homeless: Status: Acute Code(s): Z59.00 - Homelessness unspecified Plan Hospital course: 06/01: start risperidone 1 BID. hold wellbutrin for now. T/C mood stabilizer moving forward. 06/02: remains highly symptomatic. increase risperidone from 1 BID to 1/. 06/03 scientology/grandiose delusions, taking risperidone, declines mood stabilizer 06/04 declines mood stabilizer, will continue to educate pt as she gets bit calmer on risperidone 06/05 start lithium 600mg po BID, continue risperidone. 06/06 Patient psychotic and disorganized in both speech and behavior. Patient with clanging symptoms, taking a word and then rhyming it nonsensically. Patient able to have briefly organized moments and discuss medications Risperdal and lithium and says she will continue taking them; also agreed to sign into the unit. Patient then descends into some nonsensical statements and says dap and tap all moving into becoming non PhD color grafts.. Which she repeats a few times to make sure conventional mortgage underwriter gets it correctly. She denies any SI; denies AVH. Says she is struggling because everything that she loves hates her and everything that she hates, loves her. She does endorse depression and says lots of it, repeating big lots.. -will continue with current regimen since it address his both depression and psychosis; however refusing vitals and not sure she will allow labs making lithium possibly difficult 06/07 Patient refused Risperdal lithium last night; nursing staff report likely because she was asleep. Patient a little more organized today or at least able to be a little more organized for little longer; she continues to say bizarre things, rhyming Says her mood is okay talked about wanting to fix her credit; talked about whether not to get involved with [facility]; says it is hard to trust since everyone is playing games; starts to ask if conventional mortgage underwriter was playing games; starts to ask conventional mortgage underwriter personal questions but as conventional mortgage underwriter declines to answer patient becomes reticent -will switch lithium to long-acting and 1 time dosing and a little earlier since patient misses dose when scheduled later on; will also lower dose since 1200 mg to avoid risk of overdosing -will move up Risperdal to dinnertime as well; however will leave at current dosing since seems a little better 06/08 still disorganzed and delusoinal but also improved some; no SI/HI 06/09 refused meds last night, this morning. She says she did so since it was a no day but will take from now on. Conversation w/ delusional thoughts; attempted reality testing which was met w/out insight She said she does not think she has any mental/psychiatric illness and does not need medications. Regarding why she goes to psych hospitals, she said i just milk hospitals for what there worth..i need a place to stay since i'm homeless... Sw talked w/ brother who confirms long hx of psychotic illness, itinerant lifestyle, not taking meds but managing on her own; says no hx of harm self or othersand long hx going to hospitals all over the [place] PLAN: CV Risperidone 1 mg daily and 2 mg at 17:00 Change to lithium ER 900 mg at 17:00 (lowered from 1200 mg since not clear history/toleration) Will try to gather collateral Patient educated on: diagnosis and medication risk/benefits Informed Consent: understands, does not understand and further education needed Reason for continued inpatient stay Substantial Risk for: stable for discharge Time Spent With Patient Time: Total time managing care of this patient today ____ minutes.
[2024-06-09] MEDS: Lithium Carbonate ER 450 MG TABLET.ER 900 MG PO (17:44)
[2024-06-09] MEDS: risperiDONE 2 MG TABLET PO (17:45)
[2024-06-09 20:49] VITALS: RESP 16
[2024-06-10] MEDS: risperiDONE 1 MG TABLET PO (10:34)
--- NOTE | 2024-06-10 13:44 | HO.PSYCHPN ---
Subjective Subjective Date of Service: 06/10/24 Reason For Visit: Schizophrenia Interim History: met with pt; discussed with team Took Li and Risperidone. Patient is manic and disorganized. She is disinhibited and forward when talking to this examiner and complimenting him. Affect euphoric and irritable. [place] self dialoguing constantly while in her room. Pressured. Disorganized thought process. 'Denies SI/HI. Responding to internal stimuli Review of Systems Review of Systems Pt denies any acute medical complaints. Mental Status Exam Mental Status Exam Narrative: dressed in hospital [place]lene, unkempt. Some combination of mild psychomotor retardation and agitation Speech: hyperverbal though not pressured; spontaneous TP: delusions; some flight of ideas but less and can also have moments organized thought TC: Seemingly random, esoteric bizarre thoughts, delusions Mood: good Affect: Smiling SI: denies HI: none VH/AH: Denies however appears internally preoccupied, and clearly self dialoguing Delusions: grandiose and lutheran theme delusions Insight/judgment: impaired Diagnostics Vital Signs (24Hr): Vital Signs - 24 hr 06/09/24 20:49 Respiratory Rate 16 BMI result Body Mass Index 35.4 Medications Medications Current Medications Acetaminophen (Acetaminophen 325 Mg Tablet) 650 mg PO Q6H PRN PRN Reason: Headache/Pain, Scale 1-10 Al Hydroxide/Mg Hydroxide (Magnesium Hydrox/Alum Hydrox 30 Ml Oral.Susp) 30 ml PO Q6H PRN PRN Reason: Heartburn/Nausea Hydroxyzine HCl (Hydroxyzine Hcl 25 Mg Tablet) 25 mg PO Q6H PRN PRN Reason: mild anxiety [place] Carbonate ([place] Carbonate Er 450 Mg Tablet.Er) 900 mg PO DAILY@1700 [facility] Last Admin: 06/09/24 17:44 Dose: 900 mg Magnesium Hydroxide (Milk Of Magnesia 30 Ml Oral.Susp) 30 ml PO DAILY PRN PRN Reason: Constipation Nicotine (Nicotine 21 Mg Patch.Td24) 21 mg TRANSDERMA DAILY PRN PRN Reason: smoking cessation Nicotine Polacrilex (Nicotine Polacrilex 2 Mg Gum) 4 mg BUCCAL Q2H PRN PRN Reason: Nicotine Cravings Olanzapine (Olanzapine 5 Mg Tablet) 5 mg PO TID PRN PRN Reason: agitation Risperidone (Risperidone 1 Mg Tablet) 1 mg PO DAILY [facility] Last Admin: 06/10/24 10:34 Dose: 1 mg Risperidone (Risperidone 2 Mg Tablet) 2 mg PO DAILY@1700 [facility] Last Admin: 06/09/24 17:45 Dose: 2 mg Trazodone HCl (Trazodone Hcl 50 Mg Tablet) 50 mg PO BEDTIME MRX1 PRN PRN Reason: Insomnia Allergies Allergies Allergy/AdvReac Type Severity Reaction Status Date / Time No Known Allergies Allergy Verified 05/31/24 21:15 Assessment & Plan Assessment & Plan (1) Schizoaffective disorder, bipolar type: Status: Acute Code(s): F25.0 - Schizoaffective disorder, bipolar type (2) Homeless: Status: Acute Code(s): Z59.00 - Homelessness unspecified Plan Hospital course: 06/01: start risperidone 1 BID. hold wellbutrin for now. T/C mood stabilizer moving forward. 06/02: remains highly symptomatic. increase risperidone from 1 BID to 1/2. 06/03 lutheran/grandiose delusions, taking risperidone, declines mood stabilizer 06/04 declines mood stabilizer, will continue to educate pt as she gets bit calmer on risperidone 06/05 start lithium 600mg po BID, continue risperidone. 06/06 Patient psychotic and disorganized in both speech and behavior. Patient with clanging symptoms, taking a word and then rhyming it nonsensically. Patient able to have briefly organized moments and discuss medications Risperdal and lithium and says she will continue taking them; also agreed to sign into the unit. Patient then descends into some nonsensical statements and says dap and tap all moving into becoming non PhD color grafts.. Which she repeats a few times to make sure mortgage underwriter gets it correctly. She denies any SI; denies AVH. Says she is struggling because everything that she loves hates her and everything that she hates, loves her. She does endorse depression and says lots of it, repeating big lots.. -will continue with current regimen since it address his both depression and psychosis; however refusing vitals and not sure she will allow labs making lithium possibly difficult 06/07 Patient refused Risperdal lithium last night; nursing staff report likely because she was asleep. Patient a little more organized today or at least able to be a little more organized for little longer; she continues to say bizarre things, rhyming Says her mood is okay talked about wanting to fix her credit; talked about whether not to get involved with [facility]; says it is hard to trust since everyone is playing games; starts to ask if mortgage underwriter was playing games; starts to ask mortgage underwriter personal questions but as mortgage underwriter declines to answer patient becomes reticent -will switch lithium to long-acting and 1 time dosing and a little earlier since patient misses dose when scheduled later on; will also lower dose since 1200 mg to avoid risk of overdosing -will move up Risperdal to dinnertime as well; however will leave at current dosing since seems a little better 06/08 still disorganzed and delusoinal but also improved some; no SI/HI 06/09 refused meds last night, this morning. She says she did so since it was a no day but will take from now on. Conversation w/ delusional thoughts; attempted reality testing which was met w/out insight She said she does not think she has any mental/psychiatric illness and does not need medications. Regarding why she goes to psych hospitals, she said i just milk hospitals for what there worth..i need a place to stay since i'm homeless... Sw talked w/ brother who confirms long hx of psychotic illness, itinerant lifestyle, not taking meds but managing on her own; says no hx of harm self or othersand long hx going to hospitals all over the [place] 06/10: Continue current management and treatment plan. PLAN: CV Risperidone 1 mg daily and 2 mg at 17:00 Change to lithium ER 900 mg at 17:00 (lowered from 1200 mg since not clear history/toleration) Will try to gather collateral Reason for continued inpatient stay Substantial Risk for: inability to function and rapid decompensation Time Spent With Patient Time: Total time managing care of this patient today ____ minutes.
[2024-06-10] MEDS: Lithium Carbonate ER 450 MG TABLET.ER 900 MG PO (18:05)
[2024-06-10] MEDS: risperiDONE 2 MG TABLET PO (18:05)
[2024-06-10 19:50] VITALS: RESP 18
[2024-06-11] MEDS: risperiDONE 1 MG TABLET PO (11:25)
--- NOTE | 2024-06-11 14:32 | HO.PSYCHPN ---
Subjective Subjective Date of Service: 06/11/24 Reason For Visit: Schizophrenia Interim History: met with pt; discussed with team Took Li and Risperidone last 2 days. She remains disorganized. She was approached with the nurse. (a door was heard slammed on the unit and it was patient who had slammed the door to her room.) When asked what happened she said because division is much more powerful than multiplication. And not connecting is stronger than connecting. She stood with her back to this examiner and the nurse and was staring at the window. She would not answer other questions and kept repeating division is more powerful than multiplication. Remains internally preoccupied and self dialoguing. Review of Systems Review of Systems Pt denies any acute medical complaints. Mental Status Exam Mental Status Exam Narrative: dressed in hospital marlene, unkempt. Some combination of mild psychomotor retardation and agitation Speech: hyperverbal though not pressured; spontaneous TP: delusions; some flight of ideas but less and can also have moments organized thought TC: Seemingly random, esoteric bizarre thoughts, delusions Mood: good Affect: Smiling SI: denies HI: none VH/AH: Denies however appears internally preoccupied, and clearly self dialoguing Delusions: grandiose and druze theme delusions Insight/judgment: impaired Diagnostics Vital Signs (24Hr): Vital Signs - 24 hr 06/10/24 19:50 Respiratory Rate 18 BMI result Body Mass Index 35.4 Medications Medications Current Medications Acetaminophen (Acetaminophen 325 Mg Tablet) 650 mg PO Q6H PRN PRN Reason: Headache/Pain, Scale 1-10 Al Hydroxide/Mg Hydroxide (Magnesium Hydrox/Alum Hydrox 30 Ml Oral.Susp) 30 ml PO Q6H PRN PRN Reason: Heartburn/Nausea Hydroxyzine HCl (Hydroxyzine Hcl 25 Mg Tablet) 25 mg PO Q6H PRN PRN Reason: mild anxiety [place] Carbonate ([place] Carbonate Er 450 Mg Tablet.Er) 900 mg PO DAILY@1700 [facility] Last Admin: 06/10/24 18:05 Dose: 900 mg Magnesium Hydroxide (Milk Of Magnesia 30 Ml Oral.Susp) 30 ml PO DAILY PRN PRN Reason: Constipation Nicotine (Nicotine 21 Mg Patch.Td24) 21 mg TRANSDERMA DAILY PRN PRN Reason: smoking cessation Nicotine Polacrilex (Nicotine Polacrilex 2 Mg Gum) 4 mg BUCCAL Q2H PRN PRN Reason: Nicotine Cravings Olanzapine (Olanzapine 5 Mg Tablet) 5 mg PO TID PRN PRN Reason: agitation Risperidone (Risperidone 1 Mg Tablet) 1 mg PO DAILY [facility] Last Admin: 06/11/24 11:25 Dose: 1 mg Risperidone (Risperidone 2 Mg Tablet) 2 mg PO DAILY@1700 [facility] Last Admin: 06/10/24 18:05 Dose: 2 mg Trazodone HCl (Trazodone Hcl 50 Mg Tablet) 50 mg PO BEDTIME MRX1 PRN PRN Reason: Insomnia Allergies Allergies Allergy/AdvReac Type Severity Reaction Status Date / Time No Known Allergies Allergy Verified 05/31/24 21:15 Assessment & Plan Assessment & Plan (1) Schizoaffective disorder, bipolar type: Status: Acute Code(s): F25.0 - Schizoaffective disorder, bipolar type (2) Homeless: Status: Acute Code(s): Z59.00 - Homelessness unspecified Plan Hospital course: 06/01: start risperidone 1 BID. hold wellbutrin for now. T/C mood stabilizer moving forward. 06/02: remains highly symptomatic. increase risperidone from 1 BID to 1/2. 06/03 druze/grandiose delusions, taking risperidone, declines mood stabilizer 06/04 declines mood stabilizer, will continue to educate pt as she gets bit calmer on risperidone 06/05 start lithium 600mg po BID, continue risperidone. 06/06 Patient psychotic and disorganized in both speech and behavior. Patient with clanging symptoms, taking a word and then rhyming it nonsensically. Patient able to have briefly organized moments and discuss medications Risperdal and lithium and says she will continue taking them; also agreed to sign into the unit. Patient then descends into some nonsensical statements and says dap and tap all moving into becoming non PhD color grafts.. Which she repeats a few times to make sure senior medical writer gets it correctly. She denies any SI; denies AVH. Says she is struggling because everything that she loves hates her and everything that she hates, loves her. She does endorse depression and says lots of it, repeating big lots.. -will continue with current regimen since it address his both depression and psychosis; however refusing vitals and not sure she will allow labs making lithium possibly difficult 06/07 Patient refused Risperdal lithium last night; nursing staff report likely because she was asleep. Patient a little more organized today or at least able to be a little more organized for little longer; she continues to say bizarre things, rhyming Says her mood is okay talked about wanting to fix her credit; talked about whether not to get involved with [facility]; says it is hard to trust since everyone is playing games; starts to ask if senior medical writer was playing games; starts to ask senior medical writer personal questions but as senior medical writer declines to answer patient becomes reticent -will switch lithium to long-acting and 1 time dosing and a little earlier since patient misses dose when scheduled later on; will also lower dose since 1200 mg to avoid risk of overdosing -will move up Risperdal to dinnertime as well; however will leave at current dosing since seems a little better 06/08 still disorganzed and delusoinal but also improved some; no SI/HI 06/09 refused meds last night, this morning. She says she did so since it was a no day but will take from now on. Conversation w/ delusional thoughts; attempted reality testing which was met w/out insight She said she does not think she has any mental/psychiatric illness and does not need medications. Regarding why she goes to psych hospitals, she said i just milk hospitals for what there worth..i need a place to stay since i'm homeless... Sw talked w/ brother who confirms long hx of psychotic illness, itinerant lifestyle, not taking meds but managing on her own; says no hx of harm self or othersand long hx going to hospitals all over the country 06/10: Continue current management and treatment plan. 06/11: Consider mouth checks. Continue current management and treatment plan. PLAN: CV Risperidone 1 mg daily and 2 mg at 17:00 Change to lithium ER 900 mg at 17:00 (lowered from 1200 mg since not clear history/toleration) Will try to gather collateral Reason for continued inpatient stay Substantial Risk for: inability to function and rapid decompensation Time Spent With Patient Time: Total time managing care of this patient today ____ minutes.
[2024-06-11] MEDS: risperiDONE 2 MG TABLET PO (17:36)
[2024-06-11] MEDS: Lithium Carbonate ER 450 MG TABLET.ER 900 MG PO (17:36)
[2024-06-11 20:00] VITALS: RESP 16
[2024-06-12] MEDS: risperiDONE 1 MG TABLET PO (11:44)
[2024-06-12] MEDS: Multivitamin TABLET 1 TAB PO (12:32)
--- NOTE | 2024-06-12 14:02 | HO.PSYCHPN ---
Subjective Subjective Date of Service: 06/12/24 Reason For Visit: Schizophrenia Interim History: in bed in darkened room. talking about wanting to become a ghost. reporting her mood is streamline. c/o AH threatening her and her family. states she is unable to have a life. reporting she would like to go to [facility] after discharge. unable to participate in discussion re what changes need to be seen in her before she will be suitable for discharge. per staff, labile. taking meds. bizarre, slamming doors. +RIS. Mental Status Exam Mental Status Exam Narrative: [facility] Speech: hyperverbal though not pressured; spontaneous TP: delusions; some flight of ideas but less and can also have moments organized thought TC: Seemingly random, esoteric bizarre thoughts, delusions Mood: streamline Affect: constricted SI: none expressed HI: none expressed VH/AH: none expressed. +RIS per staff. Delusions: grandiose and pentecostalism theme delusions Insight/judgment: impaired Diagnostics Vital Signs (24Hr): Vital Signs - 24 hr 06/11/24 20:00 Respiratory Rate 16 BMI result Body Mass Index 35.4 Medications Medications Current Medications Acetaminophen (Acetaminophen 325 Mg Tablet) 650 mg PO Q6H PRN PRN Reason: Headache/Pain, Scale 1-10 Al Hydroxide/Mg Hydroxide (Magnesium Hydrox/Alum Hydrox 30 Ml Oral.Susp) 30 ml PO Q6H PRN PRN Reason: Heartburn/Nausea Calcium Carbonate/Cholecalciferol (Calcium + Vitamin D 250 Mg Tablet) 500 mg PO BIDWM [facility] Hydroxyzine HCl (Hydroxyzine Hcl 25 Mg Tablet) 25 mg PO Q6H PRN PRN Reason: mild anxiety [place] Carbonate ([place] Carbonate Er 450 Mg Tablet.Er) 900 mg PO DAILY@1700 [facility] Last Admin: 06/11/24 17:36 Dose: 900 mg Magnesium Hydroxide (Milk Of Magnesia 30 Ml Oral.Susp) 30 ml PO DAILY PRN PRN Reason: Constipation Multivitamins/Vitamin C (Multivitamin Tablet) 1 tab PO DAILY [facility] Last Admin: 06/12/24 12:32 Dose: 1 tab Nicotine (Nicotine 21 Mg Patch.Td24) 21 mg TRANSDERMA DAILY PRN PRN Reason: smoking cessation Nicotine Polacrilex (Nicotine Polacrilex 2 Mg Gum) 4 mg BUCCAL Q2H PRN PRN Reason: Nicotine Cravings Olanzapine (Olanzapine 5 Mg Tablet) 5 mg PO TID PRN PRN Reason: agitation Risperidone (Risperidone 1 Mg Tablet) 1 mg PO DAILY [facility] Last Admin: 06/12/24 11:44 Dose: 1 mg Risperidone (Risperidone 2 Mg Tablet) 2 mg PO DAILY@1700 [facility] Last Admin: 06/11/24 17:36 Dose: 2 mg Trazodone HCl (Trazodone Hcl 50 Mg Tablet) 50 mg PO BEDTIME MRX1 PRN PRN Reason: Insomnia Allergies Allergies Allergy/AdvReac Type Severity Reaction Status Date / Time No Known Allergies Allergy Verified 05/31/24 21:15 Assessment & Plan Assessment & Plan (1) Schizoaffective disorder, bipolar type: Status: Acute Code(s): F25.0 - Schizoaffective disorder, bipolar type (2) Homeless: Status: Acute Code(s): Z59.00 - Homelessness unspecified Plan Hospital course: 06/01: start risperidone 1 BID. hold wellbutrin for now. T/C mood stabilizer moving forward. 06/02: remains highly symptomatic. increase risperidone from 1 BID to 1/2. 06/03 pentecostalism/grandiose delusions, taking risperidone, declines mood stabilizer 06/04 declines mood stabilizer, will continue to educate pt as she gets bit calmer on risperidone 06/05 start lithium 600mg po BID, continue risperidone. 06/06 Patient psychotic and disorganized in both speech and behavior. Patient with clanging symptoms, taking a word and then rhyming it nonsensically. Patient able to have briefly organized moments and discuss medications Risperdal and lithium and says she will continue taking them; also agreed to sign into the unit. Patient then descends into some nonsensical statements and says dap and tap all moving into becoming non PhD color grafts.. Which she repeats a few times to make sure radio news writer gets it correctly. She denies any SI; denies AVH. Says she is struggling because everything that she loves hates her and everything that she hates, loves her. She does endorse depression and says lots of it, repeating big lots.. -will continue with current regimen since it address his both depression and psychosis; however refusing vitals and not sure she will allow labs making lithium possibly difficult 06/07 Patient refused Risperdal lithium last night; nursing staff report likely because she was asleep. Patient a little more organized today or at least able to be a little more organized for little longer; she continues to say bizarre things, rhyming Says her mood is okay talked about wanting to fix her credit; talked about whether not to get involved with [facility]; says it is hard to trust since everyone is playing games; starts to ask if radio news writer was playing games; starts to ask radio news writer personal questions but as radio news writer declines to answer patient becomes reticent -will switch lithium to long-acting and 1 time dosing and a little earlier since patient misses dose when scheduled later on; will also lower dose since 1200 mg to avoid risk of overdosing -will move up Risperdal to dinnertime as well; however will leave at current dosing since seems a little better 06/08 still disorganzed and delusoinal but also improved some; no SI/HI 06/09 refused meds last night, this morning. She says she did so since it was a no day but will take from now on. Conversation w/ delusional thoughts; attempted reality testing which was met w/out insight She said she does not think she has any mental/psychiatric illness and does not need medications. Regarding why she goes to psych hospitals, she said i just milk hospitals for what there worth..i need a place to stay since i'm homeless... Sw talked w/ brother who confirms long hx of psychotic illness, itinerant lifestyle, not taking meds but managing on her own; says no hx of harm self or othersand long hx going to hospitals all over the country 06/10: Continue current management and treatment plan. 06/11: Consider mouth checks. Continue current management and treatment plan. 06/12: in bed in darkened room. wants to be a ghost. AH of voices threatening her and her family. wants to DC from here to [facility]. can't engage around barriers to discharge. PLAN: CV Risperidone 1 mg daily and 2 mg at 17:00 Change to lithium ER 900 mg at 17:00 (lowered from 1200 mg since not clear history/toleration) Will try to gather collateral Reason for continued inpatient stay Substantial Risk for: inability to function Time Spent With Patient Time: Total time managing care of this patient today ___25_ minutes.
[2024-06-12] MEDS: Lithium Carbonate ER 450 MG TABLET.ER 900 MG PO (17:22)
[2024-06-12] MEDS: risperiDONE 2 MG TABLET PO (17:22)
[2024-06-12] MEDS: Calcium + Vitamin D 250 MG TABLET 500 MG PO (17:22)
[2024-06-13] MEDS: risperiDONE 1 MG TABLET PO (09:01)
[2024-06-13] MEDS: Multivitamin TABLET 1 TAB PO (09:01)
--- NOTE | 2024-06-13 13:57 | HO.PSYCHPN ---
Subjective Subjective Date of Service: 06/13/24 Reason For Visit: Schizophrenia Interim History: disorganized, bizarre. talking about hair growth as doing what we can, and the dependability of cartoons. per staff, denies dep. endorses anxiety. denies SI. affect labile. eating, taking meds. hyperverbal, non-sensical. receiving messages from the collective unconsciousness. slept about 8 hours. Mental Status Exam Mental Status Exam Narrative: dressed in hospital marlene, unkempt. no PMA/PMR. Speech: hyperverbal though not pressured; spontaneous TP: generally loose associations but less and can also have moments organized thought TC: Seemingly random, esoteric bizarre thoughts, delusions Mood: not assessed Affect: full range, normo-intense, non-labile SI: none expressed HI: none expressed VH/AH: none expressed. +RIS per staff. Delusions: none expressed Insight/judgment: impaired Diagnostics Vital Signs (24Hr): BMI result Body Mass Index 35.4 Medications Medications Current Medications Acetaminophen (Acetaminophen 325 Mg Tablet) 650 mg PO Q6H PRN PRN Reason: Headache/Pain, Scale 1-10 Al Hydroxide/Mg Hydroxide (Magnesium Hydrox/Alum Hydrox 30 Ml Oral.Susp) 30 ml PO Q6H PRN PRN Reason: Heartburn/Nausea Calcium Carbonate/Cholecalciferol (Calcium + Vitamin D 250 Mg Tablet) 500 mg PO BIDWM [facility] Last Admin: 06/13/24 09:03 Dose: Not Given Hydroxyzine HCl (Hydroxyzine Hcl 25 Mg Tablet) 25 mg PO Q6H PRN PRN Reason: mild anxiety [place] Carbonate ([place] Carbonate Er 450 Mg Tablet.Er) 900 mg PO DAILY@1700 [facility] Last Admin: 06/12/24 17:22 Dose: 900 mg Magnesium Hydroxide (Milk Of Magnesia 30 Ml Oral.Susp) 30 ml PO DAILY PRN PRN Reason: Constipation Multivitamins/Vitamin C (Multivitamin Tablet) 1 tab PO DAILY [facility] Last Admin: 06/13/24 09:01 Dose: 1 tab Nicotine (Nicotine 21 Mg Patch.Td24) 21 mg TRANSDERMA DAILY PRN PRN Reason: smoking cessation Nicotine Polacrilex (Nicotine Polacrilex 2 Mg Gum) 4 mg BUCCAL Q2H PRN PRN Reason: Nicotine Cravings Olanzapine (Olanzapine 5 Mg Tablet) 5 mg PO TID PRN PRN Reason: agitation Risperidone (Risperidone 1 Mg Tablet) 1 mg PO DAILY [facility] Last Admin: 06/13/24 09:01 Dose: 1 mg Risperidone (Risperidone 3 Mg Tablet) 3 mg PO DAILY@1700 [facility] Trazodone HCl (Trazodone Hcl 50 Mg Tablet) 50 mg PO BEDTIME MRX1 PRN PRN Reason: Insomnia Allergies Allergies Allergy/AdvReac Type Severity Reaction Status Date / Time No Known Allergies Allergy Verified 05/31/24 21:15 Assessment & Plan Assessment & Plan (1) Schizoaffective disorder, bipolar type: Status: Acute Code(s): F25.0 - Schizoaffective disorder, bipolar type (2) Homeless: Status: Acute Code(s): Z59.00 - Homelessness unspecified Plan Hospital course: 06/01: start risperidone 1 BID. hold wellbutrin for now. T/C mood stabilizer moving forward. 06/02: remains highly symptomatic. increase risperidone from 1 BID to 1/2. 06/03 yazdanism/grandiose delusions, taking risperidone, declines mood stabilizer 06/04 declines mood stabilizer, will continue to educate pt as she gets bit calmer on risperidone 06/05 start lithium 600mg po BID, continue risperidone. 06/06 Patient psychotic and disorganized in both speech and behavior. Patient with clanging symptoms, taking a word and then rhyming it nonsensically. Patient able to have briefly organized moments and discuss medications Risperdal and lithium and says she will continue taking them; also agreed to sign into the unit. Patient then descends into some nonsensical statements and says dap and tap all moving into becoming non PhD color grafts.. Which she repeats a few times to make sure writer technical publications gets it correctly. She denies any SI; denies AVH. Says she is struggling because everything that she loves hates her and everything that she hates, loves her. She does endorse depression and says lots of it, repeating big lots.. -will continue with current regimen since it address his both depression and psychosis; however refusing vitals and not sure she will allow labs making lithium possibly difficult 06/07 Patient refused Risperdal lithium last night; nursing staff report likely because she was asleep. Patient a little more organized today or at least able to be a little more organized for little longer; she continues to say bizarre things, rhyming Says her mood is okay talked about wanting to fix her credit; talked about whether not to get involved with [facility]; says it is hard to trust since everyone is playing games; starts to ask if writer technical publications was playing games; starts to ask writer technical publications personal questions but as writer technical publications declines to answer patient becomes reticent -will switch lithium to long-acting and 1 time dosing and a little earlier since patient misses dose when scheduled later on; will also lower dose since 1200 mg to avoid risk of overdosing -will move up Risperdal to dinnertime as well; however will leave at current dosing since seems a little better 06/08 still disorganzed and delusoinal but also improved some; no SI/HI 06/09 refused meds last night, this morning. She says she did so since it was a no day but will take from now on. Conversation w/ delusional thoughts; attempted reality testing which was met w/out insight She said she does not think she has any mental/psychiatric illness and does not need medications. Regarding why she goes to psych hospitals, she said i just milk hospitals for what there worth..i need a place to stay since i'm homeless... Sw talked w/ brother who confirms long hx of psychotic illness, itinerant lifestyle, not taking meds but managing on her own; says no hx of harm self or othersand long hx going to hospitals all over the [place] 06/10: Continue current management and treatment plan. 06/11: Consider mouth checks. Continue current management and treatment plan. 06/12: in bed in darkened room. wants to be a ghost. AH of voices threatening her and her family. [facility]. can't engage around barriers to discharge. 06/13: increase HS risperidone to 3 mg, otherwise continue current mgmt. not allowing labs - future of lithium unclear. will attempt to arrange [facility] for . Reason for continued inpatient stay Substantial Risk for: inability to function Time Spent With Patient Time: Total time managing care of this patient today ____ minutes.
[2024-06-13] MEDS: Lithium Carbonate ER 450 MG TABLET.ER 900 MG PO (17:48)
[2024-06-13] MEDS: Calcium + Vitamin D 250 MG TABLET 500 MG PO (17:48)
[2024-06-13] MEDS: risperiDONE 3 MG TABLET PO (17:48)
[2024-06-14] MEDS: risperiDONE 1 MG TABLET PO (10:14)
[2024-06-14] MEDS: Calcium + Vitamin D 250 MG TABLET 500 MG PO ×2 (10:14→18:04)
--- NOTE | 2024-06-14 12:38 | P.PNPSI_ITS ---
Subjective Subjective Date of Service: 06/14/24 Reason For Visit: Schizophrenia Interim History: calm and cooperative with MD, but pt was reported to have been agitated earlier in the morning. remains disorganized and bizarre. seems agreeable to [facility] to [facility] when a bed is available. per staff, taking meds. affect full range. self-dialoguing. bright, bizarre. denies mood/psych Sx. Mental Status Exam Mental Status Exam Narrative: dressed in marlene, adequately groomed no PMA/PMR. Speech: hyperverbal though not pressured; spontaneous TP: generally loose associations but less and can also have moments organized thought TC: Seemingly random, esoteric bizarre thoughts Mood: euthymic Affect: full range, normo-intense, non-labile SI: none expressed HI: none expressed VH/AH: none expressed. +RIS per staff. Delusions: none expressed Insight/judgment: impaired Diagnostics Vital Signs (24Hr): BMI result Body Mass Index 35.4 Medications Medications Current Medications Acetaminophen (Acetaminophen 325 Mg Tablet) 650 mg PO Q6H PRN PRN Reason: Headache/Pain, Scale 1-10 Al Hydroxide/Mg Hydroxide (Magnesium Hydrox/Alum Hydrox 30 Ml Oral.Susp) 30 ml PO Q6H PRN PRN Reason: Heartburn/Nausea Calcium Carbonate/Cholecalciferol (Calcium + Vitamin D 250 Mg Tablet) 500 mg PO BIDWM [facility] Last Admin: 06/14/24 10:14 Dose: 500 mg Hydroxyzine HCl (Hydroxyzine Hcl 25 Mg Tablet) 25 mg PO Q6H PRN PRN Reason: mild anxiety [place] Carbonate ([place] Carbonate Er 450 Mg Tablet.Er) 900 mg PO DAILY@1700 [facility] Last Admin: 06/13/24 17:48 Dose: 900 mg Magnesium Hydroxide (Milk Of Magnesia 30 Ml Oral.Susp) 30 ml PO DAILY PRN PRN Reason: Constipation Multivitamins/Vitamin C (Multivitamin Tablet) 1 tab PO DAILY [facility] Last Admin: 06/14/24 10:21 Dose: Not Given Nicotine (Nicotine 21 Mg Patch.Td24) 21 mg TRANSDERMA DAILY PRN PRN Reason: smoking cessation Nicotine Polacrilex (Nicotine Polacrilex 2 Mg Gum) 4 mg BUCCAL Q2H PRN PRN Reason: Nicotine Cravings Olanzapine (Olanzapine 5 Mg Tablet) 5 mg PO TID PRN PRN Reason: agitation Risperidone (Risperidone 1 Mg Tablet) 1 mg PO DAILY [facility] Last Admin: 06/14/24 10:14 Dose: 1 mg Risperidone (Risperidone 3 Mg Tablet) 3 mg PO DAILY@1700 [facility] Last Admin: 06/13/24 17:48 Dose: 3 mg Trazodone HCl (Trazodone Hcl 50 Mg Tablet) 50 mg PO BEDTIME MRX1 PRN PRN Reason: Insomnia Allergies Allergies Allergy/AdvReac Type Severity Reaction Status Date / Time No Known Allergies Allergy Verified 05/31/24 21:15 Assessment & Plan Assessment & Plan (1) Schizoaffective disorder, bipolar type: Status: Acute Code(s): F25.0 - Schizoaffective disorder, bipolar type (2) Homeless: Status: Acute Code(s): Z59.00 - Homelessness unspecified Plan Hospital course: 06/01: start risperidone 1 BID. hold wellbutrin for now. T/C mood stabilizer moving forward. 06/02: remains highly symptomatic. increase risperidone from 1 BID to 1/. 06/03 zoroastrianism/grandiose delusions, taking risperidone, declines mood stabilizer 06/04 declines mood stabilizer, will continue to educate pt as she gets bit calmer on risperidone 06/05 start lithium 600mg po BID, continue risperidone. 06/06 Patient psychotic and disorganized in both speech and behavior. Patient with clanging symptoms, taking a word and then rhyming it nonsensically. Patient able to have briefly organized moments and discuss medications Risperdal and lithium and says she will continue taking them; also agreed to sign into the unit. Patient then descends into some nonsensical statements and says dap and tap all moving into becoming non PhD color grafts.. Which she repeats a few times to make sure creative services writer gets it correctly. She denies any SI; denies AVH. Says she is struggling because everything that she loves hates her and everything that she hates, loves her. She does endorse depression and says lots of it, repeating big lots.. -will continue with current regimen since it address his both depression and psychosis; however refusing vitals and not sure she will allow labs making lithium possibly difficult 06/07 Patient refused Risperdal lithium last night; nursing staff report likely because she was asleep. Patient a little more organized today or at least able to be a little more organized for little longer; she continues to say bizarre things, rhyming Says her mood is okay talked about wanting to fix her credit; talked about whether not to get involved with [facility]; says it is hard to trust since everyone is playing games; starts to ask if creative services writer was playing games; starts to ask creative services writer personal questions but as creative services writer declines to answer patient becomes reticent -will switch lithium to long-acting and 1 time dosing and a little earlier since patient misses dose when scheduled later on; will also lower dose since 1200 mg to avoid risk of overdosing -will move up Risperdal to dinnertime as well; however will leave at current dosing since seems a little better 06/08 still disorganzed and delusoinal but also improved some; no SI/HI 06/09 refused meds last night, this morning. She says she did so since it was a no day but will take from now on. Conversation w/ delusional thoughts; attempted reality testing which was met w/out insight She said she does not think she has any mental/psychiatric illness and does not need medications. Regarding why she goes to psych hospitals, she said i just milk hospitals for what there worth..i need a place to stay since i'm homeless... Sw talked w/ brother who confirms long hx of psychotic illness, itinerant lifestyle, not taking meds but managing on her own; says no hx of harm self or othersand long hx going to hospitals all over the country 06/10: Continue current management and treatment plan. 06/11: Consider mouth checks. Continue current management and treatment plan. 06/12: in bed in darkened room. wants to be a ghost. AH of voices threatening her and her family. [facility]. can't engage around barriers to discharge. 06/13: increase HS risperidone to 3 mg, otherwise continue current mgmt. not allowing labs - future of lithium unclear. will attempt to arrange [facility] for . 06/14: refusing labs. taking meds. continue current mgmt. amenable to discharge to [facility]. will pursue at earliest convenience as of tomorrow. Reason for continued inpatient stay Substantial Risk for: inability to function and rapid decompensation Time Spent With Patient Time: Total time managing care of this patient today __25__ minutes.
[2024-06-14] MEDS: Lithium Carbonate ER 450 MG TABLET.ER 900 MG PO (18:04)
[2024-06-14] MEDS: risperiDONE 3 MG TABLET PO (18:04)
[2024-06-14 20:20] VITALS: RESP 16
--- NOTE | 2024-06-15 11:05 | PM.PSYDC ---
DS: Providers Provider Date of Service: 06/15/24 Date of admission: 05/31/24 19:48 Date of discharge: 06/15/24 Primary care physician: Unknown Physician Consults: 05/31/24 21:30 Consult to Hospitalist Routine Comment: Consulting Provider: [facility] Hospitalists Reason For Exam: admission physical DS: Diagnosis Discharge Diagnosis (1) Schizoaffective disorder, bipolar type: Status: Acute (2) Homeless: Status: Acute DS: Medications Discharge Medications Home Medications: Previous Rx's ?Medication ?Instructions ?Recorded calcium 500 mg (as 1 tab PO DAILY 30 days #30 tabs 06/14/24 carbonate)-vitamin D3 5 mcg (200 unit) tablet (Calcium 500 + D) multivitamin (Daily-Wendi tablet) 1 tab PO DAILY 30 days #30 tabs 06/14/24 risperidone 1 mg tablet 1 mg PO DAILY 30 days #30 tabs 06/14/24 risperidone 3 mg tablet 3 mg PO DAILY@1700 30 days #30 tabs 06/14/24 Mental Status Exam Mental Status Exam Narrative: dressed in marlene, adequately groomed no PMA/PMR. Speech: hyperverbal though not pressured; spontaneous TP: generally loose associations but less and can also have moments organized thought TC: Seemingly random, esoteric bizarre thoughts Mood: euthymic Affect: full range, normo-intense, non-labile SI: none expressed HI: none expressed VH/AH: none expressed. +RIS per staff. Delusions: none expressed Insight/judgment: impaired DS: Summary Hospital Course Hospital Course: HPI Narrative: per [facility] records, pt sent into ED by community [facility] office for delusions and disorganized behaviors in a homeless person who appeared to be gravely disabled. she denied any safety concerns in ED. a schizoaffective disorder bipolar type diagnosis was reported, pt stated she had been off all medications for an extended period. per [facility] eval, pt was referred to crisis by [facility]. pt was eating there and a peer told her not to move her juice container and pt asked peer, are you going to murder me? a verbal altercation ensued. she reported depressed mood to crisis staff, but denied SI/HI/AVH. she was noted to have said, i want to turn into a ghost. pt's report of the interaction above is that her peer had red juice which looked like blood to her and somehow she was concerned the peer was going to murder her. she reported no meds in a long time, and that the meds she had been taking were for parasites. she added that after having stopped the medication, she observed said parasites exiting her mouth. per television maintenance worker, appeared to respond to internal stimuli. on interview with MD, pt immediately requested to start risperidone and wellbutrin. agreed to start risperidone 1 BID and delay start of wellbutrin for now. pt demonstrated some lability and flight of ideas. she initially was receptive to MD, but appeared to sour on him by the end. a sample of her pressured speech: i'm picking up on your body language... it wouldn't be supportive... do you know any mechanical engineers? you can tell them, 'i got my ideas from cari, the collective consciousness.' unable to provide much in the way of history. Past Psychiatric History: hosps: numerous prior, MRE at [facility]. SA: denied to [facility] SIB: none reported HIB: h/o A&B on police outpt: none presently Medical Evaluation Reviewed: Hospitalist Chase Pending [facility] Family History: unknown Social History: homeless, sleeping in a tent at a skate park in [place], [place], for the past 3 days. she attempted to stay at [facility] but there were no available beds. family on [facility]. SSI income. h/o assault and battery against police. Substance History: tobacco - 0.25 ppd otherwise no drug use reported Trauma History: none reported Precis: Hospital course: 06/01: start risperidone 1 BID. hold wellbutrin for now. T/C mood stabilizer moving forward. 06/02: remains highly symptomatic. increase risperidone from 1 BID to 1/2. 06/03 restoration/grandiose delusions, taking risperidone, declines mood stabilizer 06/04 declines mood stabilizer, will continue to educate pt as she gets bit calmer on risperidone 06/05 start lithium 600mg po BID, continue risperidone. 06/06 Patient psychotic and disorganized in both speech and behavior. Patient with clanging symptoms, taking a word and then rhyming it nonsensically. Patient able to have briefly organized moments and discuss medications Risperdal and lithium and says she will continue taking them; also agreed to sign into the unit. Patient then descends into some nonsensical statements and says dap and tap all moving into becoming non PhD color grafts.. Which she repeats a few times to make sure automobile and property underwriter gets it correctly. She denies any SI; denies AVH. Says she is struggling because everything that she loves hates her and everything that she hates, loves her. She does endorse depression and says lots of it, repeating big lots.. -will continue with current regimen since it address his both depression and psychosis; however refusing vitals and not sure she will allow labs making lithium possibly difficult 06/07 Patient refused Risperdal lithium last night; nursing staff report likely because she was asleep. Patient a little more organized today or at least able to be a little more organized for little longer; she continues to say bizarre things, rhyming Says her mood is okay talked about wanting to fix her credit; talked about whether not to get involved with [facility]; says it is hard to trust since everyone is playing games; starts to ask if automobile and property underwriter was playing games; starts to ask automobile and property underwriter personal questions but as automobile and property underwriter declines to answer patient becomes reticent -will switch lithium to long-acting and 1 time dosing and a little earlier since patient misses dose when scheduled later on; will also lower dose since 1200 mg to avoid risk of overdosing -will move up Risperdal to dinnertime as well; however will leave at current dosing since seems a little better 06/08 still disorganzed and delusoinal but also improved some; no SI/HI 06/09 refused meds last night, this morning. She says she did so since it was a no day but will take from now on. Conversation w/ delusional thoughts; attempted reality testing which was met w/out insight She said she does not think she has any mental/psychiatric illness and does not need medications. Regarding why she goes to psych hospitals, she said i just milk hospitals for what there worth..i need a place to stay since i'm homeless... Sw talked w/ brother who confirms long hx of psychotic illness, itinerant lifestyle, not taking meds but managing on her own; says no hx of harm self or othersand long hx going to hospitals all over the country 06/10: Continue current management and treatment plan. 06/11: Consider mouth checks. Continue current management and treatment plan. 06/12: in bed in darkened room. wants to be a ghost. AH of voices threatening her and her family. wants to [facility]. can't engage around barriers to discharge. 06/13: increase HS risperidone to 3 mg, otherwise continue current mgmt. not allowing labs - future of lithium unclear. will attempt to arrange [facility] for . 06/14: refusing labs. taking meds. continue current mgmt. amenable to [facility] to [facility]. will pursue at earliest convenience as of tomorrow. 06/15: no change in presentation. safe. amenable to [facility] to [facility]. encouraged to F/U with mental health providers in her area. discharged as per plan. Time Spent with Patient Time attestation: Total time managing care of this patient today __35__ minutes. Discharge Plan Discharge Anticipated Discharge Date/Time: 06/15/24 13:30 Patient Disposition: [facility] Discharge Diagnosis: Schizoaffective Disorder, Bipolar Type Referrals: [facility]: [facility] [Other] - 1 Week (Call at 8:30am to see if there are beds available; you can no longer line up or walk-in, you must call and it is a first call, first serve basis. You may try calling again at 5pm if no beds were available in the morning to see if someone didn't show up and something became available) [facility] [Other] - 1 Week (You may call the above number 24/7 or walk-in M-F 8am-8pm or Sat-Sun 9am-5pm to request referral for mental health services) [facility] [Other] - 1 Week (You may call the above number 24/7 or walk-in M-F 8am-8pm or Sat-Sun 9am-5pm to request referral for mental health services) [facility] Placement: [facility] [Other] - 1 Week (Call to request assistance in locating local shelters ) [facility] [Provider Group] - 1 Week ([facility] was added to patients chart. Please call [phone] to schedule a follow up appt within 7-10 days of discharge. No release, no PCP on file.) Discharge Medications: New multivitamin [Daily-Wendi] Tablet 1 tab PO DAILY 30 Days Qty: 30 0RF risperidone 3 mg Tablet 3 mg PO DAILY@1700 30 Days Qty: 30 0RF risperidone 1 mg Tablet 1 mg PO DAILY 30 Days Qty: 30 0RF calcium carbonate-vitamin D3 [Calcium 500 + D] 500 mg-5 mcg (200 unit) tablet 1 tab PO DAILY 30 Days Qty: 30 0RF Discharge Orders: Discharge Order (Routine); Ordered 06/15/24 Ordered By: Slava Ott Diet: Advance to usual diet Activity on Discharge: As tolerated Stand Alone Forms: Patient Portal Discharge page Print Language: Malay Care Plan Goals: achieve stability in the outpatient treatment setting Health Concerns: none Plan of Treatment: take medications as prescribed, establish outpatient mental health care in your area. Assessment: not at imminent risk of harm to self or others
[2024-06-15] MEDS: risperiDONE 1 MG TABLET PO (11:08)
[2024-06-15] MEDS: Calcium + Vitamin D 250 MG TABLET 500 MG PO (11:08)
== END 2024-06-15 13:37 | disposition home or self-care (01) | DRG 885 ==
PROVIDERS: Admitting Provider Psychiatry & Neurology Psychiatry; Visit Provider Psychiatry & Neurology Psychiatry
DX: F25.0 Schizoaffective disorder, bipolar type (principal); Z59.02 Unsheltered homelessness; F17.210 Nicotine dependence, cigarettes, uncomplicated; Z71.6 Tobacco abuse counseling; Z79.899 Other long term (current) drug therapy

== ENCOUNTER → 2024-05-31 19:48 | Outpatient (BNV) | payer MEDICARE, SELFPAY | PROVIDERS: Admitting Provider Psychiatry & Neurology Psychiatry; Visit Provider Psychiatry & Neurology Psychiatry | DX: F25.0 Schizoaffective disorder, bipolar type (principal); Z59.00 Homelessness unspecified | CPT/HCPCS: 90792; 99231; 99232 ==

== ENCOUNTER → 2024-05-31 19:48 | Outpatient (BNV) | payer MEDICARE, SELFPAY | PROVIDERS: Admitting Provider Psychiatry & Neurology Psychiatry; Visit Provider Student in an Organized Health Care Education/Training Program | DX: Z00.8 Encounter for other general examination (principal) | CPT/HCPCS: 99222 ==

== ENCOUNTER 2024-07-05 18:22 | Inpatient (IN) | payer OTHER, SELFPAY ==
[2024-07-05 19:22] VITALS: BP 123/80; PULSE 106; RESP 16; TEMP 36.9; O2SAT 97
[2024-07-05 19:23] VITALS: BMI 33.6
--- NOTE | 2024-07-05 21:21 | PC.ADMIT ---
NAME ALERT; patient presents at [facility] identifying self as Caryl Lake but when asked about a previous last name identified self Florencio.
--- NOTE | 2024-07-05 21:30 | PC.ADMIT ---
this maybe the second M3 admission for this 44 year old female. legal:12B. DX: schizoaffective d/o, BPD. placed immediately on 5 minute checks due to disorganized behavior. presents as disorganized with tangential thought process. difficulty with focusing and staying on topic but was able to identify being here in the recent past, having ''Mary'' as her SW and being on risperdal in which patient reports ''I did not like taking that'' is currently undomiciled and was living in a hotel when police were called due to erratic behaviors. IM medications were administer at [facility] due to agitated behaviors being given IM haldol and midazolam 5 mg and IM 10 mg zyprexa on 2 separate occasion yesterday (07/04), holds were utilized for IM's . ALVARADO negative. medication non compliance, being prescribed risperdal in the past. no significant medical issues. allowed for skin check. declined to sign any legal paperwork.
--- NOTE | 2024-07-06 10:47 | HO.PSYADMNOT ---
[facility] Date of Service: 07/06/24 Chief Complaint: [id number] SCHIZOAFFECTIVE DISORDER Sources of Information: patient interviewed, chart reviewed and crisis/core team assessment reviewed HPI Subjective Notes: Cates Warning and Section 12B Narrative: Patient is a 44-year-old female with history of schizoaffective disorder and borderline personality disorder who was brought to ER for psychiatric evaluation and made suicidal/homicidal statements. Per crisis report, patient was removed from the premises of a hotel due to wanting a room that she did not want to pay for. Patient was brought in for a psychiatric evaluation and while in the ER patient made suicidal/homicidal statements to the physician. History of having DM services in November 2023. History of multiple inpatient psychiatric hospitalizations. Patient is a poor historian. Tangential and loose dissociations. Patient reports her mood is just depressed. Guarded. Declined to answer questions about auditory and visual hallucinations but appeared to be responding to internal stimuli. Per crisis report, pt did not disclose suicidal or homicidal ideation during their assessment. Appeared to be responding to internal stimuli. During admission assessment, patient presents alert and oriented x3. Patient declined to formally meet with T/W for admission assessment but chose to answer questions while laying in bed. Presents with flight of ideas and tangential. Patient stated, I want you to fix my credit score and change my name. I want help getting into a penitentiary . Patient initially declined to answer if she was taking any psychiatric medications but proceeded to state, I will only take lisinopril, Topamax and Wellbutrin . Patient denies SI/HI. Patient abruptly ended conversation but rolled over in bed and stated, I want to see what you look like ; She rolled over to look at T/W, smiled, said helgene and rolled back over in bed. Pt is a poor historian regarding psychiatric history. Per other provider on unit and social security specialist; patient was recently on M3 by a different last name (Florencio); medication/treatment history reviewed. Past Psychiatric History: History of multiple inpatient psychiatric hospitalizations History of having DM services in November 2023. Unknown if pt has outpatient psychiatric providers. per crisis denies hx of SA/SIB. Medical Evaluation Reviewed: Yes PMFSH Family History: Family history of schizophrenia. Social History: Homeless. . family [place]. SSI income. Substance History: utox negative. Trauma History: none reported Diagnostics Vital Signs (24Hr): Vital Signs - 24 hr 07/05/24 19:22 Temperature 98.5 F Pulse Rate 106 H Respiratory Rate 16 Blood Pressure 123/80 Pulse Oximetry 97 Oxygen Delivery Method Room Air BMI result Body Mass Index 33.6 Meds/Allergies Allergies Allergies Allergy/AdvReac Type Severity Reaction Status Date / Time No Known Allergies Allergy Verified 07/05/24 19:55 Mental Status Exam Mental Status Exam Patient Appearance: Well Grooomed Patient Orientation: Person, Place, Time and Situation Level of Consciousness: Awake and Alert Patient Behavior: Guarded and Poor Eye Contact Mood Description: Labile Affect Description: Labile Ability to Follow Directions: Good Speech Pattern: Rambling, Rapid and Pressured Thought Process: Disoriented and Racing Thought Content: positive for Flight of Ideas and positive for Tangential Assessment & Plan Assessment & Plan (1) Schizoaffective disorder: Status: Acute Code(s): F25.9 - Schizoaffective disorder, unspecified (2) Borderline personality disorder: Status: Acute Code(s): F60.3 - Borderline personality disorder Plan Patient is a 44-year-old female with history of schizoaffective disorder and borderline personality disorder who was brought to ER for psychiatric evaluation and made suicidal/homicidal statements Plan: 5 minute safety checks obtain collateral Restart medications from last inpatient hospitalization: Risperdal 1mg PO daily Risperidal 3mg PO bedtime [place] 600mg PO BID Topamax 25mg PO BID encourage treatment compliance built therapeutic rapport encourage groups referral to outpatient psychiatric providers discharge planning Patient educated on: diagnosis and medication risk/benefits Reason for continued inpatient stay Substantial Risk for: med/psych decompensation Statement Statement: I have reviewed the history and physical and performed a pertinent examination on my patient. No changes have occurred unless specified. If the History and Physical was not performed prior to admission, the Hospitalist's service will be consulted for completing the admission physical. Time Spent With Patient Time: Total time managing care of this patient today _60___ minutes.
--- NOTE | 2024-07-06 10:52 | P.CONHOSP_ITS ---
History of Present Illness Data of Consult Service Date: 07/06/24 Primary Care Provider: Unknown Physician HPI Reason for consult: Medical evaluation 44-year-old female with schizoaffective disorder and unspecified borderline personality disorder who is unhoused was brought to the emergency department at [facility] after the police were called when she refused to pay for hotel room and was noted to make bizarre comments. She is admitted to inpatient psychiatric floor for care. On arrival to the ED her vitals were stable. No leukocytosis, no anemia, renal function and electrolytes were within normal limits.. Negative test, negative UA. Unable to obtain history due to patient declining to provide me any information. Review of Systems Review of Systems: Declines to provide any information PMFSH Social History Household Members Other:: unable to assess. refuses to answer Do you presently have visiting nurse or other home services: No Patient Tobacco Use Status: Never used Tobacco Currently Displaying Signs/Symptoms of Drug Intoxication Withdrawal: No Have you been hit, kicked, punched, or otherwise hurt by someone within the past year? If so, by whom?: No Do you feel safe in your current relationship?: Yes Is there a partner from a previous relationship who is making you feel unsafe now?: No Are you made to feel afraid or neglected: No Spiritual Healthcare Practices: none identified by patient Evangelical Healthcare Practices: none identified by patient Cultural Healthcare Practices: none identified by patient Advance Directives: No Advance Directives Information Provided: Yes Do you have thoughts of harming others: None Do you have a plan to hurt others: No Plan Recently lost weight without trying: No How much weight loss: Not applicable Eating poorly because of decreased appetite: No Nutrition screen score: 0 Nutrition Risks: No Nutritional Risk Patient : No : No Poor oral hygiene: No service: No Sexual orientation: Straight/Heterosexual Meds Allergies Allergy/AdvReac Type Severity Reaction Status Date / Time No Known Allergies Allergy Verified 07/05/24 19:55 Active Medications: Current Medications Acetaminophen (Acetaminophen 325 Mg Tablet) 650 mg PO Q6H PRN PRN Reason: Headache/Pain, Scale 1-10 Al Hydroxide/Mg Hydroxide (Magnesium Hydrox/Alum Hydrox 30 Ml Oral.Susp) 30 ml PO Q6H PRN PRN Reason: Heartburn/Nausea Hydroxyzine HCl (Hydroxyzine Hcl 25 Mg Tablet) 25 mg PO Q6H PRN PRN Reason: mild anxiety [place] Carbonate ([place] Carbonate 300 Mg Capsule) 600 mg PO BID [facility] Magnesium Hydroxide (Milk Of Magnesia 30 Ml Oral.Susp) 30 ml PO DAILY PRN PRN Reason: Constipation Nicotine Polacrilex (Nicotine Polacrilex 2 Mg Gum) 4 mg BUCCAL Q2H PRN PRN Reason: Nicotine Cravings Olanzapine (Olanzapine 5 Mg Tablet) 5 mg PO TID PRN PRN Reason: agitation Risperidone (Risperidone 3 Mg Tablet) 3 mg PO BEDTIME [facility] Last Admin: 07/05/24 22:41 Dose: Not Given Risperidone (Risperidone 1 Mg Tablet) 1 mg PO DAILY [facility] Last Admin: 07/06/24 10:35 Dose: Not Given Trazodone HCl (Trazodone Hcl 50 Mg Tablet) 50 mg PO BEDTIME MRX1 PRN PRN Reason: Insomnia Physical Exam Vital Signs and Narrative: Vital Signs: Last Vital Signs Temp 98.5 F 07/05/24 19:22 Pulse 106 H 07/05/24 19:22 Resp 16 07/05/24 19:22 BP 123/80 07/05/24 19:22 Pulse Ox 97 07/05/24 19:22 O2 Del Method Room Air 07/05/24 19:22 BMI result Body Mass Index 33.6 Alert, no apparent distress. Neuro: Ambulating at baseline, refuses to cooperate with exam ENT: hearing intact Cardiac: Color within normal limits Pulmonary: No increased WOB. MSK: Moves all extremities Extremities: Steady gait Psych: Uncooperative Skin: Appears intact. Assessment and Plan (1) Schizoaffective disorder: Status: Acute Plan Schizoaffective disorder and unspecified borderline personality disorder Treatment per psych team. Thank you for allowing me to participate in the care of this patient. Signing off at this time. Please reconsult of any acute complaints or issues arise
--- NOTE | 2024-07-06 11:53 | PC.NURSE ---
Patient refused her morning medication, stated I don't take risperidone, the knows what I take . When medications were changed by the provider and pt was offered scheduled lithium and topamax, pt continuously stated we're supposed to stay away from anything that talks or moves and declined to take any of the medications. ZEYAD Robbins notified.
[2024-07-06 20:00] VITALS: BP 168/65; PULSE 91; RESP 18; TEMP 36.2; O2SAT 98
--- NOTE | 2024-07-07 08:54 | P.PNPSI_ITS ---
Subjective Subjective Date of Service: 07/07/24 Reason For Visit: [id number] SCHIZOAFFECTIVE DISORDER Subjective Notes: Section 12B Interim History: Calmer today. Continues labile and tangential. Pt reports she is allergic to all antipsychotics ; discussed various medication options. Pt then stated, I'll just stick with taking Risperdal . Pt reports she is focused on trying to reinvent myself. I hate my name and credit score . Pt declined lithium; took risperdal and topamax. per nursing, slept 8 hours. Medication Compliance: Yes Side effects from medications: No Attending Groups: No Mental Status Exam Mental Status Exam Narrative: Pt is alert and oriented; behavior is cooperative and calm; dressed in casual attire; mood is labile; eye contact appropriate; Speech is normal rate, volume and not pressured; tangential, goal oriented, focused on changing her name and credit score; denies SI/HI/VH/AH. Diagnostics Vital Signs (24Hr): Vital Signs - 24 hr 07/06/24 20:00 Temperature 97.1 F Pulse Rate 91 Respiratory Rate 18 Blood Pressure 168/65 H Pulse Oximetry 98 Oxygen Delivery Method Room Air BMI result Body Mass Index 33.6 Medications Medications Current Medications Acetaminophen (Acetaminophen 325 Mg Tablet) 650 mg PO Q6H PRN PRN Reason: Headache/Pain, Scale 1-10 Al Hydroxide/Mg Hydroxide (Magnesium Hydrox/Alum Hydrox 30 Ml Oral.Susp) 30 ml PO Q6H PRN PRN Reason: Heartburn/Nausea Hydroxyzine HCl (Hydroxyzine Hcl 25 Mg Tablet) 25 mg PO Q6H PRN PRN Reason: mild anxiety [place] Carbonate ([place] Carbonate 300 Mg Capsule) 600 mg PO BID [facility] Last Admin: 07/06/24 21:59 Dose: Not Given Magnesium Hydroxide (Milk Of Magnesia 30 Ml Oral.Susp) 30 ml PO DAILY PRN PRN Reason: Constipation Nicotine Polacrilex (Nicotine Polacrilex 2 Mg Gum) 4 mg BUCCAL Q2H PRN PRN Reason: Nicotine Cravings Olanzapine (Olanzapine 5 Mg Tablet) 5 mg PO TID PRN PRN Reason: agitation Risperidone (Risperidone 3 Mg Tablet) 3 mg PO BEDTIME [facility] Last Admin: 07/06/24 21:59 Dose: Not Given Risperidone (Risperidone 1 Mg Tablet) 1 mg PO DAILY [facility] Last Admin: 07/06/24 10:35 Dose: Not Given Topiramate (Topiramate 25 Mg Tablet) 25 mg PO BID [facility] Last Admin: 07/06/24 21:59 Dose: Not Given Trazodone HCl (Trazodone Hcl 50 Mg Tablet) 50 mg PO BEDTIME MRX1 PRN PRN Reason: Insomnia Allergies Allergies Allergy/AdvReac Type Severity Reaction Status Date / Time No Known Allergies Allergy Verified 07/05/24 19:55 Assessment & Plan Assessment & Plan (1) Schizoaffective disorder: Status: Acute Code(s): F25.9 - Schizoaffective disorder, unspecified (2) Borderline personality disorder: Status: Acute Code(s): F60.3 - Borderline personality disorder Plan Patient is a 44-year-old female with history of schizoaffective disorder and borderline personality disorder who was brought to ER for psychiatric evaluation and made suicidal/homicidal statements Plan: 5 minute safety checks obtain collateral Restart medications from last inpatient hospitalization: Risperdal 1mg PO daily Risperidal 3mg PO bedtime [place] 600mg PO BID Topamax 25mg PO BID encourage treatment compliance built therapeutic rapport encourage groups referral to outpatient psychiatric providers discharge planning 07/07: Calmer today. Continues labile and tangential. Pt reports she is allergic to all antipsychotics ; discussed various medication options. Pt then stated, I'll just stick with taking Risperdal . Pt reports she is focused on trying to reinvent myself. I hate my name and credit score . Pt declined lithium; took risperdal and topamax. per nursing, slept 8 hours. Patient educated on: diagnosis and medication risk/benefits Reason for continued inpatient stay Substantial Risk for: med/psych decompensation Time Spent With Patient Time: Total time managing care of this patient today _20___ minutes.
[2024-07-07] MEDS: Topiramate 25 MG TABLET PO (10:03)
[2024-07-07] MEDS: risperiDONE 1 MG TABLET PO (10:03)
[2024-07-07 20:00] VITALS: RESP 18
[2024-07-08 10:11] VITALS: BP 120/76; PULSE 81; RESP 18; TEMP 37.1; O2SAT 98
[2024-07-08] MEDS: risperiDONE 1 MG TABLET PO (10:14)
[2024-07-08] MEDS: Topiramate 25 MG TABLET PO (10:14)
--- NOTE | 2024-07-08 13:37 | HO.PSYCHPN ---
Subjective Subjective Date of Service: 07/08/24 Reason For Visit: [id number] SCHIZOAFFECTIVE DISORDER Subjective Notes: Section 12B Interim History: Keeping to self. calm. paranoid. guarded. labile. more organized today. Patient stated, I don't trust you. 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 Patient reports she feels her mood is normal and does not need a mood stabilizer. denies SI/HI/VH/AH. 12b up on 07/11/24. Continue current tx plan. Medication Compliance: Intermittent Side effects from medications: No Attending Groups: No Mental Status Exam Mental Status Exam Narrative: Pt is alert and oriented; behavior is cooperative and calm; dressed in casual attire; mood is labile; eye contact appropriate; Speech is normal rate, volume and not pressured; tangential, goal oriented, more organized today; denies SI/HI/VH/AH. Diagnostics Vital Signs (24Hr): Vital Signs - 24 hr 07/07/24 20:00 07/08/24 10:11 Temperature 98.7 F Pulse Rate 81 Respiratory Rate 18 18 Blood Pressure 120/76 Pulse Oximetry 98 Oxygen Delivery Method Room Air BMI result Body Mass Index 33.6 Medications Medications Current Medications Acetaminophen (Acetaminophen 325 Mg Tablet) 650 mg PO Q6H PRN PRN Reason: Headache/Pain, Scale 1-10 Al Hydroxide/Mg Hydroxide (Magnesium Hydrox/Alum Hydrox 30 Ml Oral.Susp) 30 ml PO Q6H PRN PRN Reason: Heartburn/Nausea Hydroxyzine HCl (Hydroxyzine Hcl 25 Mg Tablet) 25 mg PO Q6H PRN PRN Reason: mild anxiety [place] Carbonate ([place] Carbonate 300 Mg Capsule) 600 mg PO BID [facility] Last Admin: 07/08/24 10:13 Dose: Not Given Magnesium Hydroxide (Milk Of Magnesia 30 Ml Oral.Susp) 30 ml PO DAILY PRN PRN Reason: Constipation Nicotine Polacrilex (Nicotine Polacrilex 2 Mg Gum) 4 mg BUCCAL Q2H PRN PRN Reason: Nicotine Cravings Olanzapine (Olanzapine 5 Mg Tablet) 5 mg PO TID PRN PRN Reason: agitation Risperidone (Risperidone 3 Mg Tablet) 3 mg PO BEDTIME [facility] Last Admin: 07/07/24 21:22 Dose: Not Given Risperidone (Risperidone 1 Mg Tablet) 1 mg PO DAILY [facility] Last Admin: 07/08/24 10:14 Dose: 1 mg Topiramate (Topiramate 25 Mg Tablet) 25 mg PO BID [facility] Last Admin: 07/08/24 10:14 Dose: 25 mg Trazodone HCl (Trazodone Hcl 50 Mg Tablet) 50 mg PO BEDTIME MRX1 PRN PRN Reason: Insomnia Allergies Allergies Allergy/AdvReac Type Severity Reaction Status Date / Time No Known Allergies Allergy Verified 07/05/24 19:55 Assessment & Plan Assessment & Plan (1) Schizoaffective disorder: Status: Acute Code(s): F25.9 - Schizoaffective disorder, unspecified (2) Borderline personality disorder: Status: Acute Code(s): F60.3 - Borderline personality disorder Plan Patient is a 44-year-old female with history of schizoaffective disorder and borderline personality disorder who was brought to ER for psychiatric evaluation and made suicidal/homicidal statements Plan: 5 minute safety checks obtain collateral Restart medications from last inpatient hospitalization: Risperdal 1mg PO daily Risperidal 3mg PO bedtime [place] 600mg PO BID Topamax 25mg PO BID encourage treatment compliance built therapeutic rapport encourage groups referral to outpatient psychiatric providers discharge planning 07/07: Calmer today. Continues labile and tangential. Pt reports she is allergic to all antipsychotics ; discussed various medication options. Pt then stated, I'll just stick with taking Risperdal . Pt reports she is focused on trying to reinvent myself. I hate my name and credit score . Pt declined lithium; took risperdal and topamax. per nursing, slept 8 hours. 07/08: Keeping to self. calm. paranoid. guarded. labile. more organized today. Patient stated, I don't trust you. 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 Patient reports she feels her mood is normal and does not need a mood stabilizer. denies SI/HI/VH/AH. 12b up on 07/11/24. Continue current tx plan. Patient educated on: diagnosis and medication risk/benefits Reason for continued inpatient stay Substantial Risk for: med/psych decompensation Time Spent With Patient Time: Total time managing care of this patient today _20___ minutes.
[2024-07-08 20:00] VITALS: RESP 18
--- NOTE | 2024-07-09 09:20 | HO.PSYCHPN ---
Subjective Subjective Date of Service: 07/09/24 Reason For Visit: F2536 SCHIZOAFFECTIVE DISORDER Subjective Notes: Section 12B Interim History: Keeping to self. calm. paranoid. Patient stated, I had a tamper tantrum last night. It's being people bully me and think I don't hear them . Per nursing, pt shouted at room mate last night. slept 8 hours. denies SI/HI/VH/AH. Compliant with Risperidal 1mg PO daily and Topamax 25mg. Continue current tx plan. Medication Compliance: Intermittent Side effects from medications: No Attending Groups: No Mental Status Exam Mental Status Exam Narrative: Pt is alert and oriented; behavior is cooperative and calm; dressed in casual attire; mood is labile; eye contact appropriate; Speech is normal rate, volume and not pressured; goal oriented, more organized, paranoid; denies SI/HI/VH/AH. Diagnostics Vital Signs (24Hr): Vital Signs - 24 hr 07/08/24 10:11 07/08/24 20:00 Temperature 98.7 F Pulse Rate 81 Respiratory Rate 18 18 Blood Pressure 120/76 Pulse Oximetry 98 Oxygen Delivery Method Room Air BMI result Body Mass Index 33.6 Medications Medications Current Medications Acetaminophen (Acetaminophen 325 Mg Tablet) 650 mg PO Q6H PRN PRN Reason: Headache/Pain, Scale 1-10 Al Hydroxide/Mg Hydroxide (Magnesium Hydrox/Alum Hydrox 30 Ml Oral.Susp) 30 ml PO Q6H PRN PRN Reason: Heartburn/Nausea Hydroxyzine HCl (Hydroxyzine Hcl 25 Mg Tablet) 25 mg PO Q6H PRN PRN Reason: mild anxiety [place] Carbonate ([place] Carbonate 300 Mg Capsule) 600 mg PO BID [facility] Last Admin: 07/08/24 20:50 Dose: Not Given Magnesium Hydroxide (Milk Of Magnesia 30 Ml Oral.Susp) 30 ml PO DAILY PRN PRN Reason: Constipation Nicotine Polacrilex (Nicotine Polacrilex 2 Mg Gum) 4 mg BUCCAL Q2H PRN PRN Reason: Nicotine Cravings Olanzapine (Olanzapine 5 Mg Tablet) 5 mg PO TID PRN PRN Reason: agitation Risperidone (Risperidone 3 Mg Tablet) 3 mg PO BEDTIME [facility] Last Admin: 07/08/24 20:50 Dose: Not Given Risperidone (Risperidone 1 Mg Tablet) 1 mg PO DAILY [facility] Last Admin: 07/08/24 10:14 Dose: 1 mg Topiramate (Topiramate 25 Mg Tablet) 25 mg PO BID [facility] Last Admin: 07/08/24 20:50 Dose: Not Given Trazodone HCl (Trazodone Hcl 50 Mg Tablet) 50 mg PO BEDTIME MRX1 PRN PRN Reason: Insomnia Allergies Allergies Allergy/AdvReac Type Severity Reaction Status Date / Time No Known Allergies Allergy Verified 07/05/24 19:55 Assessment & Plan Assessment & Plan (1) Schizoaffective disorder: Status: Acute Code(s): F25.9 - Schizoaffective disorder, unspecified (2) Borderline personality disorder: Status: Acute Code(s): F60.3 - Borderline personality disorder Plan Patient is a 44-year-old female with history of schizoaffective disorder and borderline personality disorder who was brought to ER for psychiatric evaluation and made suicidal/homicidal statements Plan: 5 minute safety checks obtain collateral Restart medications from last inpatient hospitalization: Risperdal 1mg PO daily Risperidal 3mg PO bedtime [place] 600mg PO BID Topamax 25mg PO BID encourage treatment compliance built therapeutic rapport encourage groups referral to outpatient psychiatric providers discharge planning 07/07: Calmer today. Continues labile and tangential. Pt reports she is allergic to all antipsychotics ; discussed various medication options. Pt then stated, I'll just stick with taking Risperdal . Pt reports she is focused on trying to reinvent myself. I hate my name and credit score . Pt declined lithium; took risperdal and topamax. per nursing, slept 8 hours. 07/08: Keeping to self. calm. paranoid. guarded. labile. more organized today. Patient stated, I don't trust you. 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 Patient reports she feels her mood is normal and does not need a mood stabilizer. denies SI/HI/VH/AH. 12b up on 07/11/24. Continue current tx plan. 07/09: Keeping to self. calm. paranoid. Patient stated, I had a tamper tantrum last night. It's being people bully me and think I don't hear them . Per nursing, pt shouted at room mate last night. slept 8 hours. denies SI/HI/VH/AH. Compliant with Risperidal 1mg PO daily and Topamax 25mg. Continue current tx plan. Patient educated on: diagnosis, medication risk/benefits and therapeutic strategies Reason for continued inpatient stay Substantial Risk for: med/psych decompensation Time Spent With Patient Time: Total time managing care of this patient today _20___ minutes.
[2024-07-09 10:38] VITALS: BP 123/76; PULSE 80; RESP 18; TEMP 36.7; O2SAT 98
[2024-07-09] MEDS: risperiDONE 1 MG TABLET PO (10:40)
[2024-07-09] MEDS: Topiramate 25 MG TABLET PO ×2 (10:40→21:33)
[2024-07-09 21:00] VITALS: BP 130/78; PULSE 68; RESP 16; TEMP 36.6; O2SAT 96
--- NOTE | 2024-07-10 08:48 | P.PNPSI_ITS ---
Subjective Subjective Date of Service: 07/10/24 Reason For Visit: F2536 SCHIZOAFFECTIVE DISORDER Subjective Notes: Conditional Voluntary Interim History: Signed CV. keeping to self. Observed talking to self throughout the morning; however, denies AH/VH. denies SI/HI. Risperdal changed to 2mg PO BID. Topamax increased to 50mg PO BID. Continue current tx plan. Medication Compliance: Yes Side effects from medications: No Attending Groups: No Mental Status Exam Mental Status Exam Narrative: Pt is alert and oriented; behavior is cooperative and calm; dressed in casual attire; mood is labile; eye contact appropriate; Speech is normal rate, volume and not pressured; goal oriented, more organized, paranoid; observed responding to internal stimuli. denies SI/HI/VH/AH. Diagnostics Vital Signs (24Hr): Vital Signs - 24 hr 07/09/24 10:38 07/09/24 21:00 Temperature 98.1 F 97.8 F Pulse Rate 80 68 Respiratory Rate 18 16 Blood Pressure 123/76 130/78 Pulse Oximetry 98 96 Oxygen Delivery Method Room Air Room Air BMI result Body Mass Index 33.6 Medications Medications Current Medications Acetaminophen (Acetaminophen 325 Mg Tablet) 650 mg PO Q6H PRN PRN Reason: Headache/Pain, Scale 1-10 Al Hydroxide/Mg Hydroxide (Magnesium Hydrox/Alum Hydrox 30 Ml Oral.Susp) 30 ml PO Q6H PRN PRN Reason: Heartburn/Nausea Hydroxyzine HCl (Hydroxyzine Hcl 25 Mg Tablet) 25 mg PO Q6H PRN PRN Reason: mild anxiety [place] Carbonate ([place] Carbonate 300 Mg Capsule) 600 mg PO BID [facility] Last Admin: 07/09/24 21:35 Dose: Not Given Magnesium Hydroxide (Milk Of Magnesia 30 Ml Oral.Susp) 30 ml PO DAILY PRN PRN Reason: Constipation Nicotine Polacrilex (Nicotine Polacrilex 2 Mg Gum) 4 mg BUCCAL Q2H PRN PRN Reason: Nicotine Cravings Olanzapine (Olanzapine 5 Mg Tablet) 5 mg PO TID PRN PRN Reason: agitation Risperidone (Risperidone 3 Mg Tablet) 3 mg PO BEDTIME [facility] Last Admin: 07/09/24 21:35 Dose: Not Given Risperidone (Risperidone 1 Mg Tablet) 1 mg PO DAILY [facility] Last Admin: 07/09/24 10:40 Dose: 1 mg Topiramate (Topiramate 25 Mg Tablet) 25 mg PO BID [facility] Last Admin: 07/09/24 21:33 Dose: 25 mg Trazodone HCl (Trazodone Hcl 50 Mg Tablet) 50 mg PO BEDTIME MRX1 PRN PRN Reason: Insomnia Allergies Allergies Allergy/AdvReac Type Severity Reaction Status Date / Time No Known Allergies Allergy Verified 07/05/24 19:55 Assessment & Plan Assessment & Plan (1) Schizoaffective disorder: Status: Acute Code(s): F25.9 - Schizoaffective disorder, unspecified (2) Borderline personality disorder: Status: Acute Code(s): F60.3 - Borderline personality disorder Plan Patient is a 44-year-old female with history of schizoaffective disorder and borderline personality disorder who was brought to ER for psychiatric evaluation and made suicidal/homicidal statements Plan: 5 minute safety checks obtain collateral Restart medications from last inpatient hospitalization: Risperdal 1mg PO daily Risperidal 3mg PO bedtime [place] 600mg PO BID Topamax 25mg PO BID encourage treatment compliance built therapeutic rapport encourage groups referral to outpatient psychiatric providers discharge planning 07/07: Calmer today. Continues labile and tangential. Pt reports she is allergic to all antipsychotics ; discussed various medication options. Pt then stated, I'll just stick with taking Risperdal . Pt reports she is focused on trying to reinvent myself. I hate my name and credit score . Pt declined lithium; took risperdal and topamax. per nursing, slept 8 hours. 07/08: Keeping to self. calm. paranoid. guarded. labile. more organized today. Patient stated, I don't trust you. 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 Patient reports she feels her mood is normal and does not need a mood stabilizer. denies SI/HI/VH/AH. 12b up on 07/11/24. Continue current tx plan. 07/09: Keeping to self. calm. paranoid. Patient stated, I had a tamper tantrum last night. It's being people bully me and think I don't hear them . Per nursing, pt shouted at room mate last night. slept 8 hours. denies SI/HI/VH/AH. Compliant with Risperidal 1mg PO daily and Topamax 25mg. Continue current tx alycia n. 07/10: Signed CV. keeping to self. Observed talking to self throughout the morning; however, denies AH/VH. denies SI/HI. Risperdal changed to 2mg PO BID. Topamax increased to 50mg PO BID. Continue current tx plan. Patient educated on: diagnosis and medication risk/benefits Reason for continued inpatient stay Substantial Risk for: med/psych decompensation Time Spent With Patient Time: Total time managing care of this patient today _20___ minutes.
[2024-07-10] MEDS: Topiramate 25 MG TABLET PO (10:10)
[2024-07-10] MEDS: risperiDONE 1 MG TABLET PO (10:11)
[2024-07-10 20:00] VITALS: RESP 16
[2024-07-10] MEDS: Topiramate 25 MG TABLET 50 MG PO (20:42)
[2024-07-10] MEDS: risperiDONE 2 MG TABLET PO (20:42)
[2024-07-11] MEDS: risperiDONE 2 MG TABLET PO ×2 (08:37→20:25)
[2024-07-11] MEDS: Topiramate 25 MG TABLET 50 MG PO ×2 (08:37→20:25)
--- NOTE | 2024-07-11 13:36 | P.PNPSI_ITS ---
Subjective Subjective Date of Service: 07/11/24 Reason For Visit: F2536 SCHIZOAFFECTIVE DISORDER Subjective Notes: Conditional Voluntary Interim History: Keeping to self. Declined to attend groups. staying in room most of the day. medication compliant; pt reports she does not want to take lithium and only want to take risperidal and topamax . flight of ideas. Pt asking how she can be transferred to [facility] so I can stay somewhere longer and not be homeless . Denies SI/HI/VH/AH. Observed self dialoguing at times. DC lithium. Medication Compliance: Yes Side effects from medications: No Attending Groups: No Mental Status Exam Mental Status Exam Narrative: Pt is alert and oriented; behavior is cooperative and calm; dressed in casual attire; mood is described as okay ; eye contact appropriate; Speech is normal rate, volume and not pressured; goal oriented, more organized, paranoid; observed self dialoguing . denies SI/HI/VH/AH. Diagnostics Vital Signs (24Hr): Vital Signs - 24 hr 07/10/24 20:00 Respiratory Rate 16 BMI result Body Mass Index 33.6 Medications Medications Current Medications Acetaminophen (Acetaminophen 325 Mg Tablet) 650 mg PO Q6H PRN PRN Reason: Headache/Pain, Scale 1-10 Al Hydroxide/Mg Hydroxide (Magnesium Hydrox/Alum Hydrox 30 Ml Oral.Susp) 30 ml PO Q6H PRN PRN Reason: Heartburn/Nausea Hydroxyzine HCl (Hydroxyzine Hcl 25 Mg Tablet) 25 mg PO Q6H PRN PRN Reason: mild anxiety [place] Carbonate ([place] Carbonate 300 Mg Capsule) 600 mg PO BID [facility] Last Admin: 07/11/24 08:38 Dose: Not Given Magnesium Hydroxide (Milk Of Magnesia 30 Ml Oral.Susp) 30 ml PO DAILY PRN PRN Reason: Constipation Nicotine Polacrilex (Nicotine Polacrilex 2 Mg Gum) 4 mg BUCCAL Q2H PRN PRN Reason: Nicotine Cravings Olanzapine (Olanzapine 5 Mg Tablet) 5 mg PO TID PRN PRN Reason: agitation Risperidone (Risperidone 2 Mg Tablet) 2 mg PO BID [facility] Last Admin: 07/11/24 08:37 Dose: 2 mg Topiramate (Topiramate 25 Mg Tablet) 50 mg PO BID [facility] Last Admin: 07/11/24 08:37 Dose: 50 mg Trazodone HCl (Trazodone Hcl 50 Mg Tablet) 50 mg PO BEDTIME MRX1 PRN PRN Reason: Insomnia Allergies Allergies Allergy/AdvReac Type Severity Reaction Status Date / Time No Known Allergies Allergy Verified 07/05/24 19:55 Assessment & Plan Assessment & Plan (1) Schizoaffective disorder: Status: Acute Code(s): F25.9 - Schizoaffective disorder, unspecified (2) Borderline personality disorder: Status: Acute Code(s): F60.3 - Borderline personality disorder Plan Patient is a 44-year-old female with history of schizoaffective disorder and borderline personality disorder who was brought to ER for psychiatric evaluation and made suicidal/homicidal statements Plan: 5 minute safety checks obtain collateral Restart medications from last inpatient hospitalization: Risperdal 1mg PO daily Risperidal 3mg PO bedtime [place] 600mg PO BID Topamax 25mg PO BID encourage treatment compliance built therapeutic rapport encourage groups referral to outpatient psychiatric providers discharge planning 07/07: Calmer today. Continues labile and tangential. Pt reports she is allergic to all antipsychotics ; discussed various medication options. Pt then stated, I'll just stick with taking Risperdal . Pt reports she is focused on trying to reinvent myself. I hate my name and credit score . Pt declined lithium; took risperdal and topamax. per nursing, slept 8 hours. 07/08: Keeping to self. calm. paranoid. guarded. labile. more organized today. Patient stated, I don't trust you. 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 Patient reports she feels her mood is normal and does not need a mood stabilizer. denies SI/HI/VH/AH. 12b up on 07/11/24. Continue current tx plan. 07/09: Keeping to self. calm. paranoid. Patient stated, I had a tamper tantrum last night. It's being people bully me and think I don't hear them . Per nursing, pt shouted at room mate last night. slept 8 hours. denies SI/HI/VH/AH. Compliant with Risperidal 1mg PO daily and Topamax 25mg. Continue current tx plan. 07/10: Signed CV. keeping to self. Observed talking to self throughout the morning; however, denies AH/VH. denies SI/HI. Risperdal changed to 2mg PO BID. Topamax increased to 50mg PO BID. Continue current tx plan. 07/11: Keeping to self. Declined to attend groups. staying in room most of the day. medication compliant; pt reports she does not want to take lithium and only want to take risperidal and topamax . flight of ideas. Pt asking how she can be transferred to [facility] so I can stay somewhere longer and not be homeless . Denies SI/HI/VH/AH. Observed self dialoguing at times. DC lithium. Patient educated on: diagnosis and medication risk/benefits Reason for continued inpatient stay Substantial Risk for: med/psych decompensation Time Spent With Patient Time: Total time managing care of this patient today _20___ minutes.
[2024-07-12] MEDS: risperiDONE 2 MG TABLET PO ×2 (09:41→20:46)
[2024-07-12] MEDS: Topiramate 25 MG TABLET 50 MG PO ×2 (09:41→20:46)
--- NOTE | 2024-07-12 15:42 | P.PNPSI_ITS ---
Subjective Subjective Date of Service: 07/12/24 Reason For Visit: F2536 SCHIZOAFFECTIVE DISORDER Interim History: unable to remain on germane topics. wanting to talk about arts community in [facility] and her wanting to be an artist bcse all the cool people in [facility] who are artists are cool. educated re mood stabilizers, not very interested in evidence-based mood stabilizers, informed her he would prescribe lithium as his professional duty to her. discussed discharge in that pt is not compliant with recommended care and is asking for housing first and foremost and therefore she would likely be discharged soon as the main mission of this facility is not to provide housing. pt arguing against, saying she [facility]. per staff, refused lithium yesterday morning. bizarre writings. slept 7.5 hours. internally preoccupied. took risperidone in eves. Mental Status Exam Mental Status Exam Narrative: Pt is alert and oriented; behavior is cooperative and calm; dressed in casual attire; mood is described as okay ; eye contact appropriate; Speech is incr rate and amount, decr latency; digressive, paranoid. no SI/HI/VH/AH expressed. Diagnostics Vital Signs (24Hr): BMI result Body Mass Index 33.6 Medications Medications Current Medications Acetaminophen (Acetaminophen 325 Mg Tablet) 650 mg PO Q6H PRN PRN Reason: Headache/Pain, Scale 1-10 Al Hydroxide/Mg Hydroxide (Magnesium Hydrox/Alum Hydrox 30 Ml Oral.Susp) 30 ml PO Q6H PRN PRN Reason: Heartburn/Nausea Hydroxyzine HCl (Hydroxyzine Hcl 25 Mg Tablet) 25 mg PO Q6H PRN PRN Reason: mild anxiety [place] Carbonate ([place] Carbonate Er 450 Mg Tablet.Er) 450 mg PO BID [facility] Magnesium Hydroxide (Milk Of Magnesia 30 Ml Oral.Susp) 30 ml PO DAILY PRN PRN Reason: Constipation Nicotine Polacrilex (Nicotine Polacrilex 2 Mg Gum) 4 mg BUCCAL Q2H PRN PRN Reason: Nicotine Cravings Olanzapine (Olanzapine 5 Mg Tablet) 5 mg PO TID PRN PRN Reason: agitation Risperidone (Risperidone 2 Mg Tablet) 2 mg PO BID [facility] Last Admin: 07/12/24 09:41 Dose: 2 mg Topiramate (Topiramate 25 Mg Tablet) 50 mg PO BID [facility] Last Admin: 07/12/24 09:41 Dose: 50 mg Trazodone HCl (Trazodone Hcl 50 Mg Tablet) 50 mg PO BEDTIME MRX1 PRN PRN Reason: Insomnia Allergies Allergies Allergy/AdvReac Type Severity Reaction Status Date / Time No Known Allergies Allergy Verified 07/05/24 19:55 Assessment & Plan Assessment & Plan (1) Schizoaffective disorder: Status: Acute Code(s): F25.9 - Schizoaffective disorder, unspecified (2) Borderline personality disorder: Status: Acute Code(s): F60.3 - Borderline personality disorder Plan Patient is a 44-year-old female with history of schizoaffective disorder and borderline personality disorder who was brought to ER for psychiatric evaluation and made suicidal/homicidal statements Plan: 5 minute safety checks obtain collateral Restart medications from last inpatient hospitalization: Risperdal 1mg PO daily Risperidal 3mg PO bedtime [place] 600mg PO BID Topamax 25mg PO BID encourage treatment compliance built therapeutic rapport encourage groups referral to outpatient psychiatric providers discharge planning 07/07: Calmer today. Continues labile and tangential. Pt reports she is allergic to all antipsychotics ; discussed various medication options. Pt then stated, I'll just stick with taking Risperdal . Pt reports she is focused on trying to reinvent myself. I hate my name and credit score . Pt declined lithium; took risperdal and topamax. per nursing, slept 8 hours. 07/08: Keeping to self. calm. paranoid. guarded. labile. more organized today. Patient stated, I don't trust you. 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 Patient reports she feels her mood is normal and does not need a mood stabilizer. denies SI/HI/VH/AH. 12b up on 07/11/24. Continue current tx plan. 07/09: Keeping to self. calm. paranoid. Patient stated, I had a tamper tantrum last night. It's being people bully me and think I don't hear them . Per nursing, pt shouted at room mate last night. slept 8 hours. denies SI/HI/VH/AH. Compliant with Risperidal 1mg PO daily and Topamax 25mg. Continue current tx plan. 07/10: Signed CV. keeping to self. Observed talking to self throughout the morn ing; however, denies AH/VH. denies SI/HI. Risperdal changed to 2mg PO BID. Topamax increased to 50mg PO BID. Continue current tx plan. 07/11: Keeping to self. Declined to attend groups. staying in room most of the day. medication compliant; pt reports she does not want to take lithium and only want to take risperidal and topamax . flight of ideas. Pt asking how she can be transferred to [facility] so I can stay somewhere longer and not be homeless . Denies SI/HI/VH/AH. Observed self dialoguing at times. DC lithium. 07/12: digressive, argumentative, preoccupied with housing. refusing recommended care. informed we will not keep her for housing and if she is refusing recommended care she is unlikely to remain in the hospital long. informed her there is no legitimate basis on which to petition a [facility] for her. informed her lithium would be prescribed and is encouraged for her to take. Reason for continued inpatient stay Substantial Risk for: inability to function Time Spent With Patient Time: Total time managing care of this patient today _35___ minutes.
[2024-07-12 19:40] VITALS: RESP 18
[2024-07-12] MEDS: Lithium Carbonate ER 450 MG TABLET.ER PO (20:46)
[2024-07-13 08:00] VITALS: RESP 16
--- NOTE | 2024-07-13 09:54 | HO.PSYCHPN ---
Subjective Subjective Date of Service: 07/13/24 Reason For Visit: F2536 SCHIZOAFFECTIVE DISORDER Subjective Notes: Conditional Voluntary Interim History: Keeping to self. calm. continues with tangential thought content. 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 Pt stated, my credit score is messed up and no one told me landlords check credit . Declined lithium last night. educated regarding medication compliance. Patient reports she plans on leaving on Wednesday and taking a bus to [place]. denies SI/HI/VH/AH. Observed self dialoguing throughout the day. Medication Compliance: Intermittent Side effects from medications: No Attending Groups: No Mental Status Exam Mental Status Exam Narrative: Pt is alert and oriented; behavior is cooperative and calm; dressed in casual attire; mood is described as okay ; eye contact appropriate; Speech is normal rate, volume and not pressured; thought process is goal directed; Thought content is tangential, focused on credit score and housing mostly; denies SI/HI/VH/AH. Self-dialoguing Diagnostics Vital Signs (24Hr): Vital Signs - 24 hr 07/12/24 19:40 07/13/24 08:00 Respiratory Rate 18 16 BMI result Body Mass Index 33.6 Medications Medications Current Medications Acetaminophen (Acetaminophen 325 Mg Tablet) 650 mg PO Q6H PRN PRN Reason: Headache/Pain, Scale 1-10 Al Hydroxide/Mg Hydroxide (Magnesium Hydrox/Alum Hydrox 30 Ml Oral.Susp) 30 ml PO Q6H PRN PRN Reason: Heartburn/Nausea Hydroxyzine HCl (Hydroxyzine Hcl 25 Mg Tablet) 25 mg PO Q6H PRN PRN Reason: mild anxiety [place] Carbonate ([place] Carbonate Er 450 Mg Tablet.Er) 450 mg PO BID [facility] Last Admin: 07/12/24 20:46 Dose: 450 mg Magnesium Hydroxide (Milk Of Magnesia 30 Ml Oral.Susp) 30 ml PO DAILY PRN PRN Reason: Constipation Nicotine Polacrilex (Nicotine Polacrilex 2 Mg Gum) 4 mg BUCCAL Q2H PRN PRN Reason: Nicotine Cravings Olanzapine (Olanzapine 5 Mg Tablet) 5 mg PO TID PRN PRN Reason: agitation Risperidone (Risperidone 2 Mg Tablet) 2 mg PO BID [facility] Last Admin: 07/12/24 20:46 Dose: 2 mg Topiramate (Topiramate 25 Mg Tablet) 50 mg PO BID [facility] Last Admin: 07/12/24 20:46 Dose: 50 mg Trazodone HCl (Trazodone Hcl 50 Mg Tablet) 50 mg PO BEDTIME MRX1 PRN PRN Reason: Insomnia Allergies Allergies Allergy/AdvReac Type Severity Reaction Status Date / Time No Known Allergies Allergy Verified 07/05/24 19:55 Assessment & Plan Assessment & Plan (1) Schizoaffective disorder: Status: Acute Code(s): F25.9 - Schizoaffective disorder, unspecified (2) Borderline personality disorder: Status: Acute Code(s): F60.3 - Borderline personality disorder Plan Patient is a 44-year-old female with history of schizoaffective disorder and borderline personality disorder who was brought to ER for psychiatric evaluation and made suicidal/homicidal statements Plan: 5 minute safety checks obtain collateral Restart medications from last inpatient hospitalization: Risperdal 1mg PO daily Risperidal 3mg PO bedtime [place] 600mg PO BID Topamax 25mg PO BID encourage treatment compliance built therapeutic rapport encourage groups referral to outpatient psychiatric providers discharge planning 07/07: Calmer today. Continues labile and tangential. Pt reports she is allergic to all antipsychotics ; discussed various medication options. Pt then stated, I'll just stick with taking Risperdal . Pt reports she is focused on trying to reinvent myself. I hate my name and credit score . Pt declined lithium; took risperdal and topamax. per nursing, slept 8 hours. 07/08: Keeping to self. calm. paranoid. guarded. labile. more organized today. Patient stated, I don't trust you. 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 Patient reports she feels her mood is normal and does not need a mood stabilizer. denies SI/HI/VH/AH. 12b up on 07/11/24. Continue current tx plan. 07/09: Keeping to self. calm. paranoid. Patient stated, I had a tamper tantrum last night. It's being people bully me and think I don't hear them . Per nursing, pt shouted at room mate last night. slept 8 hours. denies SI/HI/VH/AH. Compliant with Risperidal 1mg PO daily and Topamax 25mg. Continue current tx plan. 07/10: Signed CV. keeping to self. Observed talking to self throughout the morning; however, denies AH/VH. denies SI/HI. Risperdal changed to 2mg PO BID. Topamax increased to 50mg PO BID. Continue current tx plan. 07/11: Keeping to self. Declined to attend groups. staying in room most of the day. medication compliant; pt reports she does not want to take lithium and only want to take risperidal and topamax . flight of ideas. Pt asking how she can be transferred to [facility] so I can stay somewhere longer and not be homeless . Denies SI/HI/VH/AH. Observed self dialoguing at times. DC lithium. 07/12: digressive, argumentative, preoccupied with housing. refusing recommended care. informed we will not keep her for housing and if she is refusing recommended care she is unlikely to remain in the hospital long. informed her there is no legitimate basis on which to petition a [facility] for her. informed her lithium would be prescribed and is encouraged for her to take. 07/13: Keeping to self. calm. continues with tangential thought content. 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 Pt stated, my credit score is messed up and no one told me landlords check credit . Declined lithium last night. educated regarding medication compliance. Patient reports she plans on leaving on Wednesday and taking a bus to [place]. denies SI/HI/VH/AH. Observed self dialoguing throughout the day. continue current tx plan. Patient educated on: diagnosis and medication risk/benefits Reason for continued inpatient stay Substantial Risk for: med/psych decompensation Time Spent With Patient Time: Total time managing care of this patient today _20___ minutes.
[2024-07-13] MEDS: risperiDONE 2 MG TABLET PO ×2 (09:58→21:08)
[2024-07-13] MEDS: Topiramate 25 MG TABLET 50 MG PO ×2 (09:58→21:08)
[2024-07-13 20:00] VITALS: BP 121/73; PULSE 81; RESP 14; TEMP 37.1; O2SAT 98
[2024-07-14 08:00] VITALS: RESP 18
[2024-07-14] MEDS: risperiDONE 2 MG TABLET PO ×2 (09:03→21:05)
[2024-07-14] MEDS: Topiramate 25 MG TABLET 50 MG PO ×2 (09:03→21:05)
--- NOTE | 2024-07-14 09:37 | HO.PSYCHPN ---
Subjective Subjective Date of Service: 07/14/24 Reason For Visit: [id number] SCHIZOAFFECTIVE DISORDER Subjective Notes: Conditional Voluntary Interim History: Pt reports feeling fine today; refused lithium. She reports sleeping well last night. denies SI/HI/VH/AH. discussed discharge planning for early next week. Pt stated, I can't leave here yet because I get paid on the 4th. My plan is to take a bus to the [facility] and rent an apartment there that I found on [employer] . pt reports she will go to a detention until she receives her check. keeping to self. not attending groups. Continue current tx plan. Medication Compliance: Intermittent Side effects from medications: No Attending Groups: No Mental Status Exam Mental Status Exam Narrative: Pt is alert and oriented; behavior is cooperative and calm; dressed in casual attire; mood is described as fine ; eye contact appropriate; Speech is normal rate, volume and not pressured; thought process is more organized, goal directed; Thought content is on discharge and housing; denies SI/HI/VH/AH. Diagnostics Vital Signs (24Hr): Vital Signs - 24 hr 07/13/24 20:00 07/14/24 08:00 Temperature 98.7 F Pulse Rate 81 Respiratory Rate 14 18 Blood Pressure 121/73 Pulse Oximetry 98 Oxygen Delivery Method Room Air BMI result Body Mass Index 33.6 Medications Medications Current Medications Acetaminophen (Acetaminophen 325 Mg Tablet) 650 mg PO Q6H PRN PRN Reason: Headache/Pain, Scale 1-10 Al Hydroxide/Mg Hydroxide (Magnesium Hydrox/Alum Hydrox 30 Ml Oral.Susp) 30 ml PO Q6H PRN PRN Reason: Heartburn/Nausea Hydroxyzine HCl (Hydroxyzine Hcl 25 Mg Tablet) 25 mg PO Q6H PRN PRN Reason: mild anxiety [place] Carbonate ([place] Carbonate Er 450 Mg Tablet.Er) 450 mg PO BID COUNT INCLUDES THE [facility] Last Admin: 07/14/24 09:04 Dose: Not Given Magnesium Hydroxide (Milk Of Magnesia 30 Ml Oral.Susp) 30 ml PO DAILY PRN PRN Reason: Constipation Nicotine Polacrilex (Nicotine Polacrilex 2 Mg Gum) 4 mg BUCCAL Q2H PRN PRN Reason: Nicotine Cravings Olanzapine (Olanzapine 5 Mg Tablet) 5 mg PO TID PRN PRN Reason: agitation Risperidone (Risperidone 2 Mg Tablet) 2 mg PO BID COUNT INCLUDES THE [facility] Last Admin: 07/14/24 09:03 Dose: 2 mg Topiramate (Topiramate 25 Mg Tablet) 50 mg PO BID [facility]OH Last Admin: 07/14/24 09:03 Dose: 50 mg Trazodone HCl (Trazodone Hcl 50 Mg Tablet) 50 mg PO BEDTIME MRX1 PRN PRN Reason: Insomnia Allergies Allergies Allergy/AdvReac Type Severity Reaction Status Date / Time No Known Allergies Allergy Verified 07/05/24 19:55 Assessment & Plan Assessment & Plan (1) Schizoaffective disorder: Status: Acute Code(s): F25.9 - Schizoaffective disorder, unspecified (2) Borderline personality disorder: Status: Acute Code(s): F60.3 - Borderline personality disorder Plan Patient is a 44-year-old female with history of schizoaffective disorder and borderline personality disorder who was brought to ER for psychiatric evaluation and made suicidal/homicidal statements Plan: 5 minute safety checks obtain collateral Restart medications from last inpatient hospitalization: Risperdal 1mg PO daily Risperidal 3mg PO bedtime [place] 600mg PO BID Topamax 25mg PO BID encourage treatment compliance built therapeutic rapport encourage groups referral to outpatient psychiatric providers discharge planning 07/07: Calmer today. Continues labile and tangential. Pt reports she is allergic to all antipsychotics ; discussed various medication options. Pt then stated, I'll just stick with taking Risperdal . Pt reports she is focused on trying to reinvent myself. I hate my name and credit score . Pt declined lithium; took risperdal and topamax. per nursing, slept 8 hours. 07/08: Keeping to self. calm. paranoid. guarded. labile. more organized today. Patient stated, I don't trust you. 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 Patient reports she feels her mood is normal and does not need a mood stabilizer. denies SI/HI/VH/AH. 12b up on 07/11/24. Continue current tx plan. 07/09: Keeping to self. calm. paranoid. Patient stated, I had a tamper tantrum last night. It's being people bully me and think I don't hear them . Per nursing, pt shouted at room mate last night. slept 8 hours. denies SI/HI/VH/AH. Compliant with Risperidal 1mg PO daily and Topamax 25mg. Continue current tx plan. 07/10: Signed CV. keeping to self. Observed talking to self throughout the morning; however, denies AH/VH. denies SI/HI. Risperdal changed to 2mg PO BID. Topamax increased to 50mg PO BID. Continue current tx plan. 07/11: Keeping to self. Declined to attend groups. staying in room most of the day. medication compliant; pt reports she does not want to take lithium and only want to take risperidal and topamax . flight of ideas. Pt asking how she can be transferred to [facility] so I can stay somewhere longer and not be homeless . Denies SI/HI/VH/AH. Observed self dialoguing at times. DC lithium. 07/12: digressive, argumentative, preoccupied with housing. refusing recommended care. informed we will not keep her for housing and if she is refusing recommended care she is unlikely to remain in the hospital long. informed her there is no legitimate basis on which to petition a [facility] for her. informed her lithium would be prescribed and is encouraged for her to take. 07/13: Keeping to self. calm. continues with tangential thought content. 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 Pt stated, my credit score is messed up and [facility] . Declined lithium last night. educated regarding medication compliance. Patient reports she plans on leaving on Wednesday and taking a bus to [place]. denies SI/HI/VH/AH. Observed self dialoguing throughout the day. continue current tx plan. 07/14: Pt reports feeling fine today; refused lithium. She reports sleeping well last night. denies SI/HI/VH/AH. discussed discharge planning for early next week. Pt stated, I can't leave here yet because I get paid on the . My plan is to take a bus to the [place] area and rent an apartment there that I found on [employer] . pt reports she will go to a detention until she receives her check. keeping to self. not attending groups. Continue current tx plan. Patient educated on: diagnosis and medication risk/benefits Reason for continued inpatient stay Substantial Risk for: med/psych decompensation Time Spent With Patient Time: Total time managing care of this patient today _20___ minutes.
[2024-07-14 20:00] VITALS: RESP 16; TEMP 36.4
[2024-07-15] MEDS: risperiDONE 2 MG TABLET PO ×2 (09:54→20:51)
[2024-07-15] MEDS: Topiramate 25 MG TABLET 50 MG PO ×2 (09:55→20:51)
--- NOTE | 2024-07-15 10:06 | HO.PSYCHPN ---
Subjective Subjective Date of Service: 07/15/24 Reason For Visit: [id number] SCHIZOAFFECTIVE DISORDER Subjective Notes: Conditional Voluntary Interim History: Pt sleeping and eating. She presents as hyperverbal, brighter affect. Finding unrelated topics or words or signs on the unit to be a sign of something. She reports she has been enlighten. 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 She reports she thinks sleep is a waste of time. Flight of ideas and most of them non sensical. continues to decline lithium, does not think she needs it. Review of Systems Review of Systems Declines to provide any information Mental Status Exam Mental Status Exam Narrative: alert, oriented to place, month, year but not so much as to situation. No agitation or retardation noted. Speech is hyperverbal, not pressured. TP: flight of ideas, clang associations. TC: on her learning experience and enlightment SI: none HI: none Insight/judgment: impaired x 2. VH/AH: internally preoccupied, although denies when asked Delusions: restorationism and grandiose delusions. Diagnostics Vital Signs (24Hr): Vital Signs - 24 hr 07/14/24 20:00 Temperature 97.6 F Respiratory Rate 16 BMI result Body Mass Index 33.6 Medications Medications Current Medications Acetaminophen (Acetaminophen 325 Mg Tablet) 650 mg PO Q6H PRN PRN Reason: Headache/Pain, Scale 1-10 Al Hydroxide/Mg Hydroxide (Magnesium Hydrox/Alum Hydrox 30 Ml Oral.Susp) 30 ml PO Q6H PRN PRN Reason: Heartburn/Nausea Hydroxyzine HCl (Hydroxyzine Hcl 25 Mg Tablet) 25 mg PO Q6H PRN PRN Reason: mild anxiety [place] Carbonate ([place] Carbonate Er 450 Mg Tablet.Er) 450 mg PO BID COUNT INCLUDES THE [facility] Last Admin: 07/15/24 09:57 Dose: Not Given Magnesium Hydroxide (Milk Of Magnesia 30 Ml Oral.Susp) 30 ml PO DAILY PRN PRN Reason: Constipation Nicotine Polacrilex (Nicotine Polacrilex 2 Mg Gum) 4 mg BUCCAL Q2H PRN PRN Reason: Nicotine Cravings Olanzapine (Olanzapine 5 Mg Tablet) 5 mg PO TID PRN PRN Reason: agitation Risperidone (Risperidone 2 Mg Tablet) 2 mg PO BID COUNT INCLUDES [facility] Last Admin: 07/15/24 09:54 Dose: 2 mg Topiramate (Topiramate 25 Mg Tablet) 50 mg PO BID COUNT INCLUDES [facility] Last Admin: 07/15/24 09:55 Dose: 50 mg Trazodone HCl (Trazodone Hcl 50 Mg Tablet) 50 mg PO BEDTIME MRX1 PRN PRN Reason: Insomnia Allergies Allergies Allergy/AdvReac Type Severity Reaction Status Date / Time No Known Allergies Allergy Verified 07/05/24 19:55 Assessment & Plan Assessment & Plan (1) Schizoaffective disorder: Status: Acute Code(s): F25.9 - Schizoaffective disorder, unspecified Plan Patient is a 44-year-old female with history of schizoaffective disorder and borderline personality disorder who was brought to ER for psychiatric evaluation and made suicidal/homicidal statements Plan: 5 minute safety checks obtain collateral Restart medications from last inpatient hospitalization: Risperdal 1mg PO daily Risperidal 3mg PO bedtime [place] 600mg PO BID Topamax 25mg PO BID encourage treatment compliance built therapeutic rapport encourage groups referral to outpatient psychiatric providers discharge planning 07/07: Calmer today. Continues labile and tangential. Pt reports she is allergic to all antipsychotics ; discussed various medication options. Pt then stated, I'll just stick with taking Risperdal . Pt reports she is focused on trying to reinvent myself. I hate my name and credit score . Pt declined lithium; took risperdal and topamax. per nursing, slept 8 hours. 07/08: Keeping to self. calm. paranoid. guarded. labile. more organized today. Patient stated, I don't trust you. 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 Patient reports she feels her mood is normal and does not need a mood stabilizer. denies SI/HI/VH/AH. 12b up on 07/11/24. Continue current tx plan. 07/09: Keeping to self. calm. paranoid. Patient stated, I had a tamper tantrum last night. It's being people bully me and think I don't hear them . Per nursing, pt shouted at room mate last night. slept 8 hours. denies SI/HI/VH/AH. Compliant with Risperidal 1mg PO daily and Topamax 25mg. Continue current tx plan. 07/10: Signed CV. keeping to self. Observed talking to self throughout the morning; however, denies AH/VH. denies SI/HI. Risperdal changed to 2mg PO BID. Topamax increased to 50mg PO BID. Continue current tx plan. 07/11: Keeping to self. Declined to attend groups. staying in room most of the day. medication compliant; pt reports she does not want to take lithium and only want to take risperidal and topamax . flight of ideas. Pt asking how she can be transferred to [facility] so I can stay somewhere longer and not be homeless . Denies SI/HI/VH/AH. Observed self dialoguing at times. DC lithium. 07/12: digressive, argumentative, preoccupied with housing. refusing recommended care. informed we will not keep her for housing and if she is refusing recommended care she is unlikely to remain in the hospital long. informed her there is no legitimate basis on which to petition a community health hospital for her. informed her lithium would be prescribed and is encouraged for her to take. 07/13: Keeping to self. calm. continues with tangential thought content. 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 Pt stated, my credit score is messed up and no [facility] . Declined lithium last night. educated regarding medication compliance. Patient reports she plans on leaving on Wednesday and taking a bus to [place]. denies SI/HI/VH/AH. Observed self dialoguing throughout the day. continue current tx plan. 07/14: Pt reports feeling fine today; refused lithium. She reports sleeping well last night. denies SI/HI/VH/AH. discussed discharge planning for early next week. Pt stated, I can't leave here yet because I get paid on the . My plan is to take a bus to the [facility] and rent an apartment there that I found on [employer] . pt reports she will go to a prison until she receives her check. keeping to self. not attending groups. Continue current tx plan. 07/15- expansive mood, flight of ideas, grandiose and restorationism themes. declines lithium. No SI/HI. No aggression towards self or others. impaired insight/judgment. Reason for continued inpatient stay Substantial Risk for: inability to function Time Spent With Patient Time: Total time managing care of this patient today ____ minutes.
--- NOTE | 2024-07-15 23:07 | PC.NURSE ---
Patient refused to take scheduled medication [place] [address]mg at 9pm. Dr. Lopez was notified about the refusal of medication.
[2024-07-16] MEDS: risperiDONE 2 MG TABLET PO ×2 (09:52→21:25)
[2024-07-16] MEDS: Topiramate 25 MG TABLET 50 MG PO ×2 (09:52→21:24)
[2024-07-16 20:00] VITALS: RESP 18
--- NOTE | 2024-07-16 21:47 | P.PNPSI_ITS ---
Subjective Subjective Date of Service: 07/16/24 Reason For Visit: F2536 SCHIZOAFFECTIVE DISORDER Subjective Notes: Conditional Voluntary Interim History: Pt sleeping and eating. She continues to present as hyperverbal, brighter/ labile affect. Finding unrelated topics or words or signs on the unit to be connected and a message to her. She reports she has been enlighten. 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 She reports she thinks sleep is a waste of time. Flight of ideas and most of them non sensical. continues to decline lithium, does not think she needs it. Review of Systems Review of Systems Declines to provide any information Mental Status Exam Mental Status Exam Narrative: alert, oriented to place, month, year but not so much as to situation. No agitation or retardation noted. Speech is hyperverbal, not pressured. TP: flight of ideas, clang associations. TC: on her learning experience and enlightment SI: none HI: none Insight/judgment: impaired x 2. VH/AH: internally preoccupied, although denies when asked Delusions: yarsani and grandiose delusions. Diagnostics Vital Signs (24Hr): Vital Signs - 24 hr 07/16/24 20:00 Respiratory Rate 18 BMI result Body Mass Index 33.6 Medications Medications Current Medications Acetaminophen (Acetaminophen 325 Mg Tablet) 650 mg PO Q6H PRN PRN Reason: Headache/Pain, Scale 1-10 Al Hydroxide/Mg Hydroxide (Magnesium Hydrox/Alum Hydrox 30 Ml Oral.Susp) 30 ml PO Q6H PRN PRN Reason: Heartburn/Nausea Hydroxyzine HCl (Hydroxyzine Hcl 25 Mg Tablet) 25 mg PO Q6H PRN PRN Reason: mild anxiety [place] Carbonate ([place] Carbonate Er 450 Mg Tablet.Er) 450 mg PO BID [facility] Last Admin: 07/16/24 21:25 Dose: Not Given Magnesium Hydroxide (Milk Of Magnesia 30 Ml Oral.Susp) 30 ml PO DAILY PRN PRN Reason: Constipation Nicotine Polacrilex (Nicotine Polacrilex 2 Mg Gum) 4 mg BUCCAL Q2H PRN PRN Reason: Nicotine Cravings Olanzapine (Olanzapine 5 Mg Tablet) 5 mg PO TID PRN PRN Reason: agitation Risperidone (Risperidone 2 Mg Tablet) 2 mg PO BID [facility] Last Admin: 07/16/24 21:25 Dose: 2 mg Topiramate (Topiramate 25 Mg Tablet) 50 mg PO BID [facility] Last Admin: 07/16/24 21:24 Dose: 50 mg Trazodone HCl (Trazodone Hcl 50 Mg Tablet) 50 mg PO BEDTIME MRX1 PRN PRN Reason: Insomnia Allergies Allergies Allergy/AdvReac Type Severity Reaction Status Date / Time No Known Allergies Allergy Verified 07/05/24 19:55 Assessment & Plan Assessment & Plan (1) Schizoaffective disorder: Status: Acute Code(s): F25.9 - Schizoaffective disorder, unspecified Plan Patient is a 44-year-old female with history of schizoaffective disorder and borderline personality disorder who was brought to ER for psychiatric evaluation and made suicidal/homicidal statements Plan: 5 minute safety checks obtain collateral Restart medications from last inpatient hospitalization: Risperdal 1mg PO daily Risperidal 3mg PO bedtime [place] 600mg PO BID Topamax 25mg PO BID encourage treatment compliance built therapeutic rapport encourage groups referral to outpatient psychiatric providers discharge planning 07/07: Calmer today. Continues labile and tangential. Pt reports she is allergic to all antipsychotics ; discussed various medication options. Pt then stated, I'll just stick with taking Risperdal . Pt reports she is focused on trying to reinvent myself. I hate my name and credit score . Pt declined lith ium; took risperdal and topamax. per nursing, slept 8 hours. 07/08: Keeping to self. calm. paranoid. guarded. labile. more organized today. Patient stated, I don't trust you. 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 Patient reports she feels her mood is normal and does not need a mood stabilizer. denies SI/HI/VH/AH. 12b up on 07/11/24. Continue current tx plan. 07/09: Keeping to self. calm. paranoid. Patient stated, I had a tamper tantrum last night. It's being people bully me and think I don't hear them . Per nursing, pt shouted at room mate last night. slept 8 hours. denies SI/HI/VH/AH. Compliant with Risperidal 1mg PO daily and Topamax 25mg. Continue current tx plan. 07/10: Signed CV. keeping to self. Observed talking to self throughout the morning; however, denies AH/VH. denies SI/HI. Risperdal changed to 2mg PO BID. Topamax increased to 50mg PO BID. Continue current tx plan. 07/11: Keeping to self. Declined to attend groups. staying in room most of the day. medication compliant; pt reports she does not want to take lithium and only want to take risperidal and topamax . flight of ideas. Pt asking how she can be transferred to [facility] so I can stay somewhere longer and not be homeless . Denies SI/HI/VH/AH. Observed self dialoguing at times. DC lithium. 07/12: digressive, argumentative, preoccupied with housing. refusing recommended care. informed we will not keep her for housing and if she is refusing recommended care she is unlikely to remain in the hospital long. informed her there is no legitimate basis on which to petition a [facility]. informed her lithium would be prescribed and is encouraged for her to take. 07/13: Keeping to self. calm. continues with tangential thought content. 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 Pt stated, my credit score is messed up and no one told me [facility] . Declined lithium last night. educated regarding medication compliance. Patient reports she plans on leaving on Wednesday and taking a bus to [place]. denies SI/HI/VH/AH. Observed self dialoguing throughout the day. continue current tx plan. 07/14: Pt reports feeling fine today; refused lithium. She reports sleeping well last night. denies SI/HI/VH/AH. discussed discharge planning for early next week. Pt stated, I can't leave here yet because I get paid on the . My plan is to take a bus to the [facility] and rent an apartment there that I found on [employer] . pt reports she will go to a senior living until she receives her check. keeping to self. not attending groups. Continue current tx plan. 07/15- expansive mood, flight of ideas, grandiose and yarsani themes. declines lithium. No SI/HI. No aggression towards self or others. impaired insight/judgment. 07/16 continue tx. declines lithium Reason for continued inpatient stay Substantial Risk for: inability to function Time Spent With Patient Time: Total time managing care of this patient today ____ minutes.
--- NOTE | 2024-07-17 09:43 | P.DS_ITS ---
DS: Providers Provider Date of Service: 07/17/24 Date of admission: 07/05/24 18:22 Date of discharge: 07/17/24 Primary care physician: Unknown Physician Admitting clinician: Frances Robbins Attending physician on admission: Matt Keene Consults: 07/05/24 21:06 Consult to Hospitalist Routine Comment: [place]ing [place] [facility] [place] Reason For Exam: admission physical Attending physician on discharge: Matt Keene Discharging clinician: Frances Robbins DS: Diagnosis Discharge Diagnosis (1) Schizoaffective disorder: Status: Acute Mental Status Exam Mental Status Exam Narrative: Pt is alert and oriented; behavior is cooperative and calm; dressed in casual attire; mood is described as good ; eye contact appropriate; Speech is normal rate, volume and not pressured; thought process is more organized, goal directed, continues circumstantial at times; Thought content is on discharge and housing; denies SI/HI/VH/AH. DS: Summary Hospital Course Hospital Course: Patient is a 44-year-old female with history of schizoaffective disorder and borderline personality disorder who was brought to ER for psychiatric evaluation and made suicidal/homicidal statements. Per crisis report, patient was removed from the premises of a hotel due to wanting a room that she did not want to pay for. Patient was brought in for a psychiatric evaluation and while in the ER patient made suicidal/homicidal statements to the physician. History of having [facility] [place] services in November 2023. History of multiple inpatient psychiatric hospitalizations. Patient is a poor historian. Tangential and loose dissociations. Patient reports her mood is just depressed. Guarded. Declined to answer questions about auditory and visual hallucinations but appeared to be responding to internal stimuli. Per crisis report, pt did not disclose suicidal or homicidal ideation during their assessment. Appeared to be responding to internal stimuli. During admission assessment, patient presents alert and oriented x3. Patient declined to formally meet with T/W for admission assessment but chose to answer questions while laying in bed. Presents with flight of ideas and tangential. Patient stated, I want you to fix my credit score and change my name. I want help getting into a long-term . Patient initially declined to answer if she was taking any psychiatric medications but proceeded to state, I will only take lisinopril, Topamax and Wellbutrin . Patient denies SI/HI. Patient abruptly ended conversation but rolled over in bed and stated, I want to see what you look like ; She rolled over to look at T/W, smiled, said hello and rolled back over in bed. Pt is a poor historian regarding psychiatric history. Per other provider on unit and forensic social worker; patient was recently on M3 by a different last name (Florencio); medication/treatment history reviewed. Plan: 5 minute safety checks obtain collateral Restart medications from last inpatient hospitalization: Risperdal 1mg PO daily Risperidal 3mg PO bedtime [place] 600mg PO BID Topamax 25mg PO BID encourage treatment compliance built therapeutic rapport encourage groups referral to outpatient psychiatric providers discharge planning [place] today. Continues labile and tangential. Pt reports she is allergic to all antipsychotics ; discussed various medication options. Pt then stated, I'll just stick with taking Risperdal . Pt reports she is focused on trying to reinvent myself. I hate my name and credit score . Pt declined lithium; took risperdal and topamax. per nursing, slept 8 hours. Keeping to self. calm. paranoid. guarded. labile. more organized today. Patient stated, I don't trust you. You look like a copper plater . Patient reports she feels her mood is normal and does not need a mood stabilizer. denies SI/HI/VH/AH. 12b up on 07/11/24. Continue current tx plan. Keeping to self. calm. paranoid. Patient stated, I had a tamper tantrum last night. It's being people bully me and think I don't hear them . Per nursing, pt shouted at room mate last night. slept 8 hours. denies SI/HI/VH/AH. Compliant with Risperidal 1mg PO daily and Topamax 25mg. Continue current tx plan. Signed CV. keeping to self. Observed talking to self throughout the morning; however, denies AH/VH. denies SI/HI. Risperdal changed to 2mg PO BID. Topamax increased to 50mg PO BID. Continue current tx plan. Keeping to self. Declined to attend groups. staying in room most of the day. medication compliant; pt reports she does not want to take lithium and only want to take risperidal and topamax . flight of ideas. Pt asking how she can be transferred to [facility] so I can stay somewhere longer and not be homeless . Denies SI/HI/VH/AH. Observed self dialoguing at times. DC lithium. digressive, argumentative, preoccupied with housing. refusing recommended care. informed we will not keep her for housing and if she is refusing recommended care she is unlikely to remain in the hospital long. informed her there is no legitimate basis on which to petition a state hospital for her. informed her lithium would be prescribed and is encouraged for her to take. Keeping to self. calm. continues with tangential thought content. 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 Pt stated, my credit score is messed up and no one told me landlords check credit . Declined lithium last night. educated regarding medication compliance. Patient reports she plans on leaving on Wednesday and taking a bus to [place]. denies SI/HI/VH/AH. Observed self dialoguing throughout the day. continue current tx plan. Pt reports feeling fine today; refused lithium. She reports sleeping well last night. denies SI/HI/VH/AH. discussed discharge planning for early next week. Pt stated, I can't leave here yet because I get paid on the . My plan is to take a bus to the [place] area and rent an apartment there that I found on [email or web address] . pt reports she will go to a nursing home until she receives her check. keeping to self. not attending groups. Continue current tx plan. expansive mood, flight of ideas, grandiose and christianity themes. declines lithium. No SI/HI. No aggression towards self or others. impaired insight/judgment. Patient reports feeling good today;she denies any issues at this time. Pt continues to deny SI/HI/VH/AH. Medication compliant, continues to decline lithium. keeping to self. not attending groups. calm and cooperative. Pt became upset around discharge topic. Pt stated, I can't be discharged until I get paid. You can't send me out of here without food, transportation or money! . Pt was informed a ticket was purchased from social work team to assist in getting her to the [place] area like she asked on Wednesday. Pt stated, I'm not going to [place] until I get paid. I'm not leaving. RN attempted to review discharge paperwork with pt; per nursing, pt declined to review. Status at Discharge Cognitive/behavioral status at discharge: Patient has insight and demonstrates good judgment in terms of wanting to pursue treatment. Patient has a safety plan that includes presenting to the closest ER or calling 911 if feeling unsafe. Functional status at discharge: independent ambulation Overall status at discharge: patient is back to baseline Time Spent with Patient Time attestation: Total time managing care of this patient today _20___ minutes. Time spent: Less than 30 minutes Discharge Plan Discharge Anticipated Discharge Date/Time: 07/17/24 12:00 Patient Disposition: Home, Self-Care Discharge Diagnosis: Schizoaffective d/o, Borderline personality d/o Referrals: [facility] ( medicaid service coordinator) [Other] - 1 Week (Aubrie is rehabilitation consultant available to you through your insurance. Please contact Aubrie at your convenience.) [facility] [Provider Group] - 1 Week (07-17-24 [facility] was added to patients chart. Please call [phone] to schedule a follow up appt within 7-10 days of discharge. ) Discharge Medications: New risperidone 2 mg Tablet 2 mg PO BID 30 Days Qty: 60 0RF topiramate 50 mg tablet 50 mg PO BID 30 Days Qty: 60 0RF Discharge Orders: Discharge Order (Routine); Ordered 07/17/24 Ordered By: Frances Robbins Diet: Regular diet Activity on Discharge: As tolerated Stand Alone Forms: Patient Portal Discharge page, Community Support Print Language: Vietnamese Care Plan Goals: Maintain mood and safe behaviors Take medications as prescribed Practice coping skills Continue with outpatient providers and reach out to them as needed Health Concerns: Mood stability and behaviors Plan of Treatment: Follow up with your PCP, psychiatric provider and other outpatient providers regarding above concerns Take medications as prescribed Assessment: Patient has insight and demonstrates good judgment in terms of wanting to pursue treatment. Patient has a safety plan that includes presenting to the closest ER or calling 911 if feeling unsafe. Discharge Date/Time: 07/17/24 12:01
[2024-07-17] MEDS: Topiramate 25 MG TABLET 50 MG PO (09:46)
[2024-07-17] MEDS: risperiDONE 2 MG TABLET PO (09:46)
== END 2024-07-17 12:01 | disposition home or self-care (01) | DRG 885 ==
PROVIDERS: Admitting Provider Psychiatry & Neurology Psychiatry; Responsible Provider Registered Nurse; Visit Provider Psychiatry & Neurology Psychiatry
DX: F25.9 Schizoaffective disorder, unspecified (principal); Z59.02 Unsheltered homelessness; F60.3 Borderline personality disorder; Z79.899 Other long term (current) drug therapy

== ENCOUNTER 2024-07-17 15:19 | Emergency (ER) | payer MEDICARE, MEDICAID, SELFPAY ==
[2024-07-17 15:28] VITALS: BP 131/83; PULSE 119; RESP 18; TEMP 36.8; O2SAT 98; BMI 36.2
--- NOTE | 2024-07-17 15:28 | ED.PSYCH ---
HPI - Psych General Chief Complaint: Psychiatric Symptoms Stated Complaint: mental health issues Time Seen by Provider: 07/17/24 17:08 History of Present Illness ED Provider: Jadon Sanz MD HPI Narrative: Recent psychiatric admission returns for admission to a different level of care/unit. The patient herself is a poor historian as she has erratic tangential thought process. She tells me her name today is ?not Héctor mayorga. She denies any acute medical complaints Related Data Home Medications ?Medication ?Instructions ?Recorded ?Confirmed hydroxyzine HCl 25 mg tablet 25 mg PO QID PRN Anxiety 07/17/24 07/17/24 lithium carbonate 450 mg 450 mg PO BID 07/17/24 07/17/24 tablet,extended release olanzapine 5 mg tablet 5 mg PO TID PRN Agitation 07/17/24 07/17/24 trazodone 50 mg tablet 50 mg PO DIRECTED PRN Insomnia 07/17/24 07/17/24 Previous Rx's ?Medication ?Instructions ?Recorded calcium 500 mg (as 1 tab PO DAILY 30 days #30 tabs 06/14/24 carbonate)-vitamin D3 5 mcg (200 unit) tablet (Calcium 500 + D) multivitamin (Daily-Wendi tablet) 1 tab PO DAILY 30 days #30 tabs 06/14/24 risperidone 1 mg tablet 1 mg PO DAILY 30 days #30 tabs 06/14/24 risperidone 3 mg tablet 3 mg PO DAILY@1700 30 days #30 tabs 06/14/24 risperidone 2 mg tablet 2 mg PO BID 30 days #60 tabs 07/17/24 topiramate 50 mg tablet 50 mg PO BID 30 days #60 tabs 07/17/24 Allergies Allergy/AdvReac Type Severity Reaction Status Date / Time No Known Allergies Allergy Verified 07/18/24 11:41 [facility] Past Medical History Medical History Medical clearance for psychiatric admission Homeless Social History Social History (System 07/18/24 @ 11:41 by Brittany Ott) Household Members: Other Household Members Other:: unable to assess. refuses to answer Housing: Homeless Do you presently have visiting nurse or other home services: No Comment: 5 min check Patient Tobacco Use Status: Never used Tobacco Tobacco use type: Cigarette Cigarette Packs Per Day: 0.25 Cigarettes Per Day: 5.0 Second Hand Smoke Exposure: No Advance Directives: No Advance Directives Information Provided: No Patient : No service: No Sexual orientation: Straight/Heterosexual Physical Exam Vital Signs: Vital Signs: Last Vital Signs Temp 0 F L 07/18/24 15:28 Pulse 0 L 07/18/24 15:28 Resp 16 07/18/24 15:28 BP 000/00 L 07/18/24 15:28 Pulse Ox 0 L 07/18/24 15:28 O2 Del Method Room Air 07/18/24 15:28 BMI result Body Mass Index 36.2 Const: Other: Appearance: Alert.? Oriented X3.? No acute distress. ? Eyes: Pupils equal, round and reactive to light. ? ENT: Pharynx normal.? Atraumatic Neck: Normal inspection.? Neck supple. ? CVS: Normal heart rate and rhythm.? Pulses normal. ? Respiratory: No respiratory distress.? Breath sounds normal. ? Abdomen: Soft and nontender. ? Skin: Skin warm and dry.? Normal skin color. ? Extremities: No lower extremity edema. ? Neuro: Oriented X 3.? No motor deficit.? No sensory deficit. CN2-12 intact Psych: Tangential thoughts. Awake alert oriented. Clean and well-kempt. Occasionally inappropriately laughing and responding to internal stimuli. Course Course Course Narrative: This is an RME: Additional HPI, ROS, PE not included below will be deferred to primary provider. RME assessment and note performed by: Mone Cochran PA-C This is a [id number]-female who presents to the ER with a complaint of history of schizoaffective disorder and borderline personality disorder who was brought to ER for psychiatric evaluation and wanting to go to respite. Pt was admitted on 07/06 and was discharged this afternoon. She was on M3 and was told to go to the ED to go to M5. States that she is getting parasite pain in my brain and when it explodes it causes me back pain , reports that the pain is intermittent. She reports no current SI/HI. Plan: Labs, UA, further ER eval needed Reevaluation(s) Reevaluation #1: Time: 06:28 Date: 07/18/24 Provider: Sinan Mora MD Patient in physician observation for psychiatric evaluation.? No acute events reported overnight. No current complaints. VS stable. Patient was evaluated by the care team. Patient denied suicidal or homicidal ideation but did appeared to have altered mental status. Care team felt that the patient's insight, impulse control and judgment were impaired and she does not appear to be functioning at her baseline despite recently recent psychiatric inpatient discharged from our psychiatric facility. Care team was not able to establish a safe discharge plan therefore the patient will remain on a [address] . Will continue to monitor. Reevaluation #2: Time: 12:56 Date: 07/18/24 Provider: Sinan Mora MD Physician observation ended at 12:56 hours. patient was accepted at the [facility] @ [address] [place] [address] ETA 4pm, with a diagnosis of Scizoaffective disorder unspecified and Borderline personality disorder per history. The accepting provider is Dr. Brown. Patient will be transferred by ambulance. Medical Decision Making Medical Decision Making MDM Narrative: 44-year-old female recent discharge from psychiatric floor. Per the triage note she reports that she wants to go to a different level of care. Denies suicidal thoughts to me. Discharge Plan Discharge Clinical Impression: Schizoaffective disorder, Borderline personality disorder Patient Disposition: Xfer Psychiatric Hosp Transfer Details: [facility] @ [address] [place] [id number] , acceptattending,Dr. Brown Prescriptions: No Action multivitamin [Daily-Wendi] Tablet 1 tab PO DAILY 30 Days Qty: 30 0RF risperidone 3 mg Tablet 3 mg PO DAILY@1700 30 Days Qty: 30 0RF risperidone 1 mg Tablet 1 mg PO DAILY 30 Days Qty: 30 0RF calcium carbonate-vitamin D3 [Calcium 500 + D] 500 mg-5 mcg (200 unit) tablet 1 tab PO DAILY 30 Days Qty: 30 0RF risperidone 2 mg Tablet 2 mg PO BID 30 Days Qty: 60 0RF topiramate 50 mg tablet 50 mg PO BID 30 Days Qty: 60 0RF trazodone 50 mg Tablet 50 mg PO DIRECTED PRN (Reason: Insomnia) Rx Instructions: Take one tablet at bedtime, MR X1 PRN olanzapine 5 mg Tablet 5 mg PO TID PRN (Reason: Agitation) lithium carbonate 450 mg Tablet Extended Release 450 mg PO BID hydroxyzine HCl 25 mg Tablet 25 mg PO QID PRN (Reason: Anxiety) Interventions: [place]-Suicide Risk Severity Scale Last Done: 07/17/24 18:33 Acute Care Transfer Worksheet (ED) Last Done: 07/18/24 15:28 Discharge Date/Time: 07/18/24 15:29 Print Language: Uzbek
[2024-07-17 17:05] VITALS: BP 129/83; PULSE 119; RESP 16; TEMP 36.3; O2SAT 98
--- OUTSIDE RECORDS SUMMARY | 2024-07-17 17:14 | XMS_ITS | Clinical Summary ---
Author Organization [employer] Address [address] [place] [address] [address] [place] [address] Care Team Providers Care Equipment Operator [employer] Name Role Phone Unavailable Primary Care Provider Unavailabl e Social History Tobacco Use Types Packs/Day Years Used Date Smoking Tobacco: Never Assessed Comments Unknown Sex and Gender Information Value Date Recorded Sex Assigned at Choose not to disclose 2:14 PM EDT Legal Sex Female 4:09 PM EDT Gender Identity Gender Non-Conforming 08/31/2023 2:14 PM EDT Sexual Orientation Asexual 08/31/2023 2: 14 PM EDT Sexual Orientation Bisexual 08/31/2023 2: 14 PM EDT Plan of Treatment Health Maintenance Due Date Last Done Comments Depression Screening 1981 HIV Screening 1981 Lipid Panel 1981 SDOH Screening 1981 Disability Screening 1981 Alcohol/Substance Use Screening 1993 Tobacco Screening 1993 Family Planning (PISQ) 1996 Hepatitis C Screening 1999 DTaP/Tdap/Td Vaccines (1 - Tdap) 2000 Hepatitis A Vaccines (1 of 2 - Risk 2-dose series) 2000 Hepatitis B Vaccines (1 of 3 - 19+ 3-dose series) 2000 Pap Smear 2002 Cervical Cancer Screening 2011 HPV/Cotest 2011 Mammogram 2021 COVID-19 Vaccine (1 - 2023-2 5 season) 2023 Influenza Vaccine (Season Ended) 2024 Zoster Vaccines (1 of 2) 2031 RSV Patients and Pa tients Aged 60 years or older (1 - 1-dose 75+ series) 2056 HIB Vaccines Aged Out No longer eligi ble based on patient's age to complete this topic HPV Vaccines Aged Out No longer eligi ble based on patient's age to complete this topic IPV Vaccines Aged Out No longer eligi ble based on patient's age to complete this topic Meningococcal B Vaccine Aged Out No l onger eligible based on patient's age to complete this topic Meningococcal Vaccine Aged Out No cristiana bridget eligible based on patient's age to complete this topic Pneumococcal Vaccine: Pediat rics (0 to 5 Years) and At-Risk Patients (6 to 49) Years) Aged Out No longer eligible b ased on patient's age to complete this topic RSV under 20 months Aged Out No longe r eligible based on patient's age to complete this topic Rotavirus Vaccines Aged Out No longer eligible based on patient's age to complete this topic Insurance MEDICARE [facility] STAND[facility] C/O MELINDA AMADOR [address] [facility] [place] [address] C/O MELINDA AMADOR [address] [facility] [place] [address]
--- NOTE | 2024-07-17 17:22 | MHC.EDTECH ---
Patient refused EKG, asking to speak with a provider. RN aware.
--- NOTE | 2024-07-17 17:31 | MHC.EDTECH ---
Patient refused urine.
--- NOTE | 2024-07-17 18:31 | PC.NURSE ---
pt reports to this RN you are a real time ghost, we all are, I know the original gangster . Pt nonsensical at this time, thought process non-linear, unable to maintain basic conversation with staff. Patient refusing lab work, urine and ekg
[2024-07-17 18:33] VITALS: RESP 16
--- NOTE | 2024-07-17 18:37 | PC.NURSE ---
patient observed to be self-dialoguing in the back room in the pod
--- NOTE | 2024-07-17 20:37 | PC.NURSE ---
ASSUMED CARE OF PT AT APPROXIMATELY 1845. PT HAS MADE SEVERAL DELUSIONAL STATEMENTS. NO ACUTE BEHAVIORAL ISSUES AT THIS TIME. NO APPARENT DISTRESS. REFUSING LABS, UA AND EKG. AWAITING CARE TEAM DISPOSITION.
--- NOTE | 2024-07-17 20:51 | MHC.EDTECH ---
PT CONTINUES TO REFUSE LAB WORK. UA SAMPLE, EKG. RN AWARE
--- NOTE | 2024-07-18 09:24 | MHC.CARE ---
T/w left VM with patients brother for additional collateral contact.
--- NOTE | 2024-07-18 09:50 | MHC.EDTECH ---
Addendum entered by Dora Henriquez 07/18/24 09:52: RN aware Original Note: Patient awake and alert. Self dialoguing while walking through the common area. Patient nicely refusing lab work/EKG/vital signs at this time.
--- NOTE | 2024-07-18 10:46 | PC.NURSE ---
Addendum entered by Carisa Szymanski RN 07/18/24 10:49: Patient is a [id number]-female who presents to the ER with a complaint of history of schizoaffective disorder and borderline personality disorder who was brought to ER for psychiatric evaluation and wanting to go to respite after being admitted on 07/06 and was discharged from . Patient is refusing all level of care. She presents erratic, bizarre, tangential with flight of ideas. Patient alert and bizarre, stating helen torres, helen torres, alireza Marshall . Ambulated to the bathroom backwards with a steady gait. Politely refused request for vital signs. Will continue to monitor. Pending plan of care. Original Note: PMH: Schizoaffective disorder, unspecified Borderline personality disor Acute Borderline personality disorder
--- NOTE | 2024-07-18 12:04 | PC.NURSE ---
[facility] [place] 44F, accepted to [facility] @ [address] [place] [id number] ETA 4pm, F25.9 Scizoaffective disorder unspecified F60.3 Borderline personality disorder per history. The accepting provider s Dr. Brown. Nurse to Nurse hand-off provided to Juventino DE LA TORRE. EMS to transport
--- NOTE | 2024-07-18 12:13 | MHC.CARE ---
Pt was accepted to [facility] for today 07/18/24. The accepting provider is Dr. Brown and the ETA is 4pm. The n2n was done by pod rn. The address is [address] [place] [id number]. CARE team has been notified of placement.
--- NOTE | 2024-07-18 12:18 | PC.NURSE ---
Patient appears to be having auditory hallucinations and noted to be self-dialoguing in the room
--- NOTE | 2024-07-18 14:57 | PC.NURSE ---
Patient out of room demanding TVs that are not her be turned off, yelling in her room to self about things that do no make sense, singing dream on , asking for ear plugs
--- NOTE | 2024-07-18 15:26 | PC.NURSE ---
Patient transitioned to [facility] via EMS. Belongings provided
[2024-07-18 15:28] VITALS: BP 000/00; PULSE 0; RESP 16; TEMP -17.7; TEMP 0; O2SAT 0
== END 2024-07-18 15:29 ==
PROVIDERS: Emergency Provider Emergency Medicine
DX: F25.9 Schizoaffective disorder, unspecified (principal); F60.3 Borderline personality disorder; Z79.899 Other long term (current) drug therapy
CPT/HCPCS: 99285; S9485